=== PATIENT | female | born 1960 | race American Indian/Alaskan Native ===

== ENCOUNTER 2017-03-12 17:10 | Emergency (ER) | payer SELFPAY ==
[2017-03-12 19:25] VITALS: BP 118/79
[2017-03-12 20:29] LABS: Bacteria,Urine 1+ /HPF (Negative); Bilirubin,Urine NEG (Negative); Blood,Urine NEG (Negative); Ketones,Urine NEG (Negative); Leukocyte Esterase,Urine SM (Negative); Mucus,Urine FEW /HPF; Nitrite,Urine NEG (Negative); Protein,Urine <15 mg/dL mg/dL (Negative); RBC,Urine < 1.0 /HPF (0.0-6.0); Urobilinogen,Urine < 2.0 mg/dL (<2.0)
== END 2017-03-12 20:45 | disposition left against medical advice (07) ==
LOC: ED 17:10
DX: M54.89 Other dorsalgia (principal); R10.30 Lower abdominal pain, unspecified; R11.0 Nausea; Z53.21 Procedure and treatment not carried out due to patient leaving prior to being seen by health care provider
CPT/HCPCS: 81001; 81025

== ENCOUNTER 2017-11-19 07:44 | Emergency (ER) | payer OTHER ==
[2017-11-19] MEDS ORDERED: TORADOL IM ONE (09:22)
[2017-11-19] MEDS ORDERED: DELTASONE PO ONE (09:22)
--- NOTE | 2017-11-19 09:23 | Emergency Department Report ---
HPI - General Chief Complaint: Back Pain/Injury Time Seen by Provider: 11/19/17 09:10 - HPI HPI: This is a 57-year-old female who presents to ED complaining of left-sided back pain past 2 days. Patient states that several months ago she has had this pain before and was told it was a muscle spasm. Patient states pain is similar and localized to the lower left-sided of her back. Patient denies any fall, trauma or injuries to the back. Patient states she has been moving of bed against a wall and thinks is what aggravated the pain. She denies fever or sinus chills/ nausea vomiting/dysuria/urinary symptoms. ED Past Medical Hx - Past Medical History Hx Hypertension: Yes Hx Renal Disease: Yes (no dialysis) Hx Psychiatric Treatment: Yes (depression) - Surgical History Additional Surgical History: LAVG 1997 ( not being used anymore ) - Social History Smoking Status: Never Smoker Substance Use Type: None - Medications Home Medications: Home Medications Medication Instructions Recorded Confirmed Last Taken Type Ibuprofen [Motrin] 600 mg PO Q8H PRN #60 tablet 08/31/14 Unknown Rx Metaxalone [Skelaxin] 800 mg PO TID #30 tablet 02/19/15 Unknown Rx oxyCODONE /ACETAMINOPHEN [Percocet 1 tab PO Q6HR PRN #20 tablet 02/19/15 Unknown Rx 5/325 mg] traMADol [Ultram 50 MG tab] 50 mg PO Q6HR PRN #20 tablet 09/03/15 Unknown Rx Cyclobenzaprine [Flexeril] 10 mg PO QHS PRN #20 tablet 11/19/[address] [Voltaren Dr] 75 mg PO BID #30 tablet 11/19/17 Unknown Rx Fluconazole [Diflucan TAB] 150 mg PO ONCE #1 tablet 11/19/17 Unknown Rx Sulfamethoxazole/Trimethoprim 1 each PO BID #14 tablet 11/19/17 Unknown Rx [Bactrim DS TAB] ED Review of Systems ROS: Stated complaint: BACK SPASMS Other details as noted in HPI Constitutional: denies: chills, fever Eyes: denies: eye pain, eye discharge, vision change ENT: denies: ear pain, throat pain Respiratory: denies: cough, shortness of breath, wheezing Cardiovascular: denies: chest pain, palpitations Endocrine: no symptoms reported Gastrointestinal: denies: abdominal pain, nausea, diarrhea Genitourinary: denies: urgency, dysuria, discharge Musculoskeletal: myalgia. denies: back pain, joint swelling, arthralgia Skin: denies: rash, lesions Neurological: denies: headache, weakness, paresthesias Psychiatric: denies: anxiety, depression Hematological/Lymphatic: denies: easy bleeding, easy bruising Physical Exam - Physical Exam Vital Signs: Vital Signs 11/19/17 07:51 Temperature 98.3 F Pulse Rate 84 Respiratory 20 Rate Blood Pressure 123/84 O2 Sat by Pulse 100 Oximetry Physical Exam: GENERAL: Alert and oriented x3, no apparent distress, Normal Gait, atraumatic. HEAD: Head is normocephalic and a-traumatic. NECK: Supple. Non edematous, No lymphadenopathy or thyromegaly. No C-spine tenderness, full range of motion LUNGS: Symetrical with respiration, No wheezing, no rales or crackles, CTAB. HEART: S1, S2 present, regular rate and rhythm without murmur, no rubs, no gallops. Non tender to palpation BACK: Full range of motion, no spinal tenderness, Tenderness to palpation of the trapezius muscles and latissimus dorsi muscles of the left lower back EXTREMITIES/MUSCULOSKELETAL: No cyanosis, clubbing, rash, lesions or edema. Full ROM bilaterally. radial Pulses 2+ bilaterally. LE 5+ strength bilaterally , NEUROLOGIC: The patient is cooperative with no focal neurologic deficits. SKIN: Warm and dry, No lesions, No ulceration or induration present. ED Course Vital Signs 11/19/17 07:51 Temperature 98.3 F Pulse Rate 84 Respiratory 20 Rate Blood Pressure 123/84 O2 Sat by Pulse 100 Oximetry ED Medical Decision Making - Lab Data Laboratory Last Values Urine Color Yellow (Yellow) 11/19/17 09:23 Urine Turbidity Clear (Clear) 11/19/17 09:23 Urine pH 5.0 (5.0-7.0) 11/19/17 09:23 Ur Specific [place] 1.012 (1.003-1.030) 11/19/17 09:23 Urine Protein <15 mg/dl mg/dL (Negative) 11/19/17 09:23 Urine Glucose (UA) Neg mg/dL (Negative) 11/19/17 09:23 Urine Ketones Neg mg/dL (Negative) 11/19/17 09:23 Urine Blood Sm (Negative) 11/19/17 09:23 Urine Nitrite Neg (Negative) 11/19/17 09:23 Urine Bilirubin Neg (Negative) 11/19/17 09:23 Urine Urobilinogen < 2.0 mg/dL (<2.0) 11/19/17 09:23 Ur Leukocyte Esterase Lg (Negative) 11/19/17 09:23 Urine WBC (Auto) 12.0 /HPF (0.0-6.0) H 11/19/17 09:23 Urine RBC (Auto) 9.0 /HPF (0.0-6.0) 11/19/17 09:23 U Epithel Cells (Auto) 3.0 /HPF (0-13.0) 11/19/17 09:23 Urine Bacteria (Auto) 1+ /HPF (Negative) 11/19/17 09:23 Urine Yeast (Budding) 1+ /HPF 11/19/17 09:23 - Medical Decision Making 57-year-old female presents with muscle spasm/myalgia ED course: Urinalysis ordered to rule out urinary infection Patient received pain medication in ED or to discharge Urinalysis positive for urinary tract infection positive bacteria positive white count of positive yeast. Patient will be sent him on some antibiotics and Diflucan Patient also sent him on so pain medication for muscle spasms. I discussed the patient to follow up with the primary care physician. Vital signs are normal patient is in no acute or respiratory distress. - Differential Diagnosis 1. UTI 2. Myalgia 3. Muscle strain Critical care attestation.: If time is entered above; I have spent that time in minutes in the direct care of this critically ill patient, excluding procedure time. ED Disposition Clinical Impression: Myalgia, UTI (urinary tract infection), Muscle spasm of back Disposition: -01 TO HOME OR SELFCARE Is pt being admited?: No Does the pt Need Aspirin: No Condition: Stable Instructions: Urinary Tract Infection in Women (ED), Trigger Point Pain (ED), Musculoskeletal Pain (ED) Additional Instructions: Make sure to follow up with the primary care physician as discussed. Take all your medications as you've been prescribed. If you have any worsening symptoms or develop new symptoms please return to ED immediately. Prescriptions: Cyclobenzaprine [Flexeril] 10 mg PO QHS PRN #20 tablet PRN Reason: Muscle Spasm Diclofenac [Lyudmila Iniguez] 75 mg PO BID #30 tablet Fluconazole [Diflucan TAB] 150 mg PO ONCE #1 tablet Sulfamethoxazole/Trimethoprim [Bactrim DS TAB] 1 each PO BID #14 tablet Referrals: PRIMARY CARE, [Primary Care Provider] - 3-5 Days [facility] [Outside] - 3-5 Days [facility] [Outside] - 3-[address] [facility] [Outside] - 3-5 Days Forms: Work/School Release Form(ED), Work/School Release Form Time of Disposition: 11:50
[2017-11-19] MEDS ORDERED: TORADOL ONE (09:25)
[2017-11-19] MEDS ORDERED: DELTASONE ONE (09:25)
[2017-11-19 11:46] LABS: Bacteria,Urine 1+ /HPF (Negative); Bilirubin,Urine NEG (Negative); Blood,Urine SM (Negative); Color,Urine Yellow (Yellow); Protein,Urine <15 mg/dL mg/dL (Negative); Urobilinogen,Urine < 2.0 mg/dL (<2.0)
[2017-11-19 12:10] VITALS: BP 126/80
== END 2017-11-19 12:11 | disposition home or self-care (01) ==
LOC: ED 07:44
DX: M62.830 Muscle spasm of back (principal); N39.0 Urinary tract infection, site not specified; M79.1 Myalgia; I10 Essential (primary) hypertension; F32.9 Major depressive disorder, single episode, unspecified
CPT/HCPCS: 81001; 96372; 99283; J1885; J7512

== ENCOUNTER 2017-12-14 06:00 | Emergency (ER) | payer SELFPAY ==
[2017-12-14 06:12] VITALS: BP 116/81
[2017-12-14] MEDS ORDERED: MOTRIN ONE (06:12)
[2017-12-14] MEDS ORDERED: MOTRIN PO ONE (06:24)
--- NOTE | 2017-12-14 07:08 | XRay Report ---
FINAL REPORT EXAM: XR KNEE 3V LT HISTORY: left pain and swelling. TECHNIQUE: Three views of the left knee were obtained. FINDINGS: There is patellar spurring superiorly and inferiorly with narrowing of the patellofemoral compartment. There is a small to moderate sized joint effusion. The medial and lateral compartments appear intact. The soft tissues are well maintained. IMPRESSION: Patellofemoral osteoarthritic changes with joint effusion.
--- NOTE | 2017-12-14 08:47 | Emergency Department Report ---
ED Lower Extremity HPI - General Chief Complaint: Extremity Problem,Nontraumatic Stated Complaint: SWOLLEN KNEE Time Seen by Provider: 12/14/17 08:28 Source: patient Mode of arrival: Ambulatory Limitations: No Limitations - History of Present Illness Initial Comments: This is a 57-year-old -Turkmen female who presents with left knee pain and swelling for 3 days. Patient reports no injury or trauma. States she woke up on Tuesday with pain that was 10 out of 10 on pain scale, intermittent, and worse with movement. She was taking ibuprofen 200 mg at home with no relief of pain. Patient reported difficulty walking or bending knee due to swelling. She is able to ambulate. Denies erythema, fever, warmth, numbness or tingling, and pop sensation. MD Complaint: knee injury (left knee pain and swelling) -: days(s) (3 days) Injury: Knee: Left Type of Injury: unknown Place: home Severity: moderate Severity scale (0 -10): 7 Improves With: immobilization, rest Worsens With: weight bearing, movement Associated Symptoms: swelling, able to partially bear weight, ambulatory. denies: snap/pop sensation, numbness, tingling, unable to bear weight Treatments Prior to Arrival: NSAIDS - Related Data Previous Rx's Medication Instructions Recorded Last Taken Type Ibuprofen [Motrin] 600 mg PO Q8H PRN #60 tablet 08/31/14 Unknown Rx Metaxalone [Skelaxin] 800 mg PO TID #30 tablet 02/19/15 Unknown Rx oxyCODONE /ACETAMINOPHEN [Percocet 1 tab PO Q6HR PRN #20 tablet 02/19/15 Unknown Rx 5/325 mg] traMADol [Ultram 50 MG tab] 50 mg PO Q6HR PRN #20 tablet 09/03/15 Unknown Rx Cyclobenzaprine [Flexeril] 10 mg PO QHS PRN #20 tablet 11/19/[address] [Voltaren Dr] 75 mg PO BID #30 tablet 11/19/17 Unknown Rx Fluconazole [Diflucan TAB] 150 mg PO ONCE #1 tablet 11/19/17 Unknown Rx Sulfamethoxazole/Trimethoprim 1 each PO BID #14 tablet 11/19/17 Unknown Rx [Bactrim DS TAB] Diclofenac Sodium [Voltaren] 100 gm TP QID PRN #1 gel..gram. 12/14/17 Unknown Rx Ibuprofen [Motrin 800 MG tab] 800 mg PO Q8HR PRN #20 tablet 12/14/17 Unknown Rx Allergies Allergy/AdvReac Type Severity Reaction Status Date / Time benazepril HCl Allergy Angioedema Verified 11/19/17 09:35 [From Lotensin] ED Review of Systems ROS: Stated complaint: SWOLLEN KNEE Other details as noted in HPI Constitutional: denies: chills, fever Respiratory: denies: cough, shortness of breath, wheezing Cardiovascular: denies: chest pain, palpitations Gastrointestinal: denies: abdominal pain, nausea, diarrhea Musculoskeletal: joint swelling (left knee), arthralgia (left knee). denies: back pain Skin: denies: rash, lesions Neurological: denies: headache, weakness, numbness, paresthesias Psychiatric: denies: anxiety, depression ED Past Medical Hx - Past Medical History Hx Hypertension: Yes Hx Renal Disease: Yes (no dialysis) Hx Psychiatric Treatment: Yes (depression) - Surgical History Past Surgical History?: No Additional Surgical History: LAVBianca 1997 ( not being used anymore ) - Social History Smoking Status: Never Smoker Substance Use Type: None - Medications Home Medications: Home Medications Medication Instructions Recorded Confirmed Last Taken Type Ibuprofen [Motrin] 600 mg PO Q8H PRN #60 tablet 08/31/14 Unknown Rx Metaxalone [Skelaxin] 800 mg PO TID #30 tablet 02/19/15 Unknown Rx oxyCODONE /ACETAMINOPHEN [Percocet 1 tab PO Q6HR PRN #20 tablet 02/19/15 Unknown Rx 5/325 mg] traMADol [Ultram 50 MG tab] 50 mg PO Q6HR PRN #20 tablet 09/03/15 Unknown Rx Cyclobenzaprine [Flexeril] 10 mg PO QHS PRN #20 tablet 11/19/[address] [Voltaren Dr] 75 mg PO BID #30 tablet 11/19/17 Unknown Rx Fluconazole [Diflucan TAB] 150 mg PO ONCE #1 tablet 11/19/17 Unknown Rx Sulfamethoxazole/Trimethoprim 1 each PO BID #14 tablet 11/19/17 Unknown Rx [Bactrim DS TAB] Diclofenac Sodium [Voltaren] 100 gm TP QID PRN #1 gel..gram. 12/14/17 Unknown Rx Ibuprofen [Motrin 800 MG tab] 800 mg PO Q8HR PRN #20 tablet 12/14/17 Unknown Rx ED Physical Exam - General Limitations: No Limitations General appearance: alert, in no apparent distress - Respiratory Respiratory exam: Present: normal lung sounds bilaterally. Absent: respiratory distress - Cardiovascular Cardiovascular Exam: Present: regular rate, normal rhythm, normal heart sounds. Absent: systolic murmur, diastolic murmur, rubs, gallop - GI/Abdominal GI/Abdominal exam: Present: soft, normal bowel sounds. Absent: organomegaly, mass - Extremities Exam Extremities exam: Present: normal inspection, full ROM, normal capillary refill , joint swelling. Absent: pedal edema, calf tenderness - Expanded Lower Extremity Exam Left Hip exam: Present: normal inspection, full ROM Upper Leg exam: Present: normal inspection, full ROM Knee exam: Present: full ROM, tenderness (lateral patella), swelling, pain w/ pronation/supination, full knee extension. Absent: abrasion, laceration, ecchymosis, deformity, dislocation, erythema, effusion, posterior draw sign, pain/laxity with valgus, pain/laxity with varus Lower Leg exam: Present: normal inspection, full ROM Ankle exam: Present: normal inspection, full ROM Foot/Toe exam: Present: normal inspection, full ROM Neuro vascular tendon exam: Present: no vascular compromise Gait: Positive: observed and limited by pain - Neurological Exam Neurological exam: Present: alert, oriented X3 - Psychiatric Psychiatric exam: Present: normal affect, normal mood - Skin Skin exam: Present: warm, dry, intact, normal color. Absent: rash ED Course Vital Signs 12/14/17 06:08 Temperature 98.2 F Pulse Rate 89 Respiratory 18 Rate Blood Pressure 116/81 O2 Sat by Pulse 100 Oximetry ED Lower Extremity MDM - Radiology Data Radiology results: report reviewed EXAM: XR KNEE 3V LT HISTORY: left pain and swelling. TECHNIQUE: Three views of the left knee were obtained. FINDINGS: There is patellar spurring superiorly and inferiorly with narrowing of the patellofemoral compartment. There is a small to moderate sized joint effusion. The medial and lateral compartments appear intact. The soft tissues are well maintained. IMPRESSION: Patellofemoral osteoarthritic changes with joint effusion. - Medical Decision Making This is a 57y.o. female presents with left knee swelling and pain for 3 days. Patient was examined by me. Vitals are stable and in no acute distress. Obtained x-ray of left knee and read by radiologist. X-ray of left knee impression: Patellofemoral osteoarthritic changes with joint effusion. Patient given Motrin 800 mg by mouth once in triage. Patient informed of results. Patient reports feeling much better after treatment on physical assessment. Start ibuprofen for osteoarthritis. Plan discussed with patient to discharge home and treat outpatient. Patient discharged home in stable condition. Follow up with PCP in 2-3 days. Critical care attestation.: If time is entered above; I have spent that time in minutes in the direct care of this critically ill patient, excluding procedure time. ED Disposition Clinical Impression: Effusion, left knee Osteoarthritis of left knee Qualifiers: Osteoarthritis type: primary Qualified Code(s): M17.12 - Unilateral primary osteoarthritis, left knee Disposition: TO HOME OR SELFCARE Is pt being admited?: No Does the pt Need Aspirin: No Condition: Stable Instructions: Osteoarthritis (ED), Knee Effusion (ED) Additional Instructions: Rest Use ice or heat on affected area for 20 minutes and off for 2 hours. Take pain medication as needed for pain. Increase activity as tolerated. Follow up with Primary Care Provider in 2-3 days. Prescriptions: Diclofenac Sodium [Voltaren] 100 gm TP QID PRN #1 gel..gram. PRN Reason: Pain Ibuprofen [Motrin 800 MG tab] 800 mg PO Q8HR PRN #20 tablet PRN Reason: Pain Referrals: [facility] [Outside] - 3-5 Days [facility] [Outside] - 3-5 Days [facility] [Outside] - 3-5 Days Forms: Work/School Release Form(ED) Time of Disposition: 08:56 Print Language: MONGOLIAN
--- NOTE | 2017-12-14 09:01 | Emergency Department Report ---
ED Shortness of Breath HPI - General Chief Complaint: Extremity Problem,Nontraumatic Stated Complaint: SWOLLEN KNEE Time Seen by Provider: 12/14/17 08:28 Source: patient Mode of arrival: Ambulatory Limitations: No Limitations - History of Present Illness Severity: moderate - Related Data Previous Rx's Medication Instructions Recorded Last Taken Type Ibuprofen [Motrin] 600 mg PO Q8H PRN #60 tablet 08/31/14 Unknown Rx Metaxalone [Skelaxin] 800 mg PO TID #30 tablet 02/19/15 Unknown Rx oxyCODONE /ACETAMINOPHEN [Percocet 1 tab PO Q6HR PRN #20 tablet 02/19/15 Unknown Rx 5/325 mg] traMADol [Ultram 50 MG tab] 50 mg PO Q6HR PRN #20 tablet 09/03/15 Unknown Rx Cyclobenzaprine [Flexeril] 10 mg PO QHS PRN #20 tablet 11/19/[address] [Voltaren Dr] 75 mg PO BID #30 tablet 11/19/17 Unknown Rx Fluconazole [Diflucan TAB] 150 mg PO ONCE #1 tablet 11/19/17 Unknown Rx Sulfamethoxazole/Trimethoprim 1 each PO BID #14 tablet 11/19/17 Unknown Rx [Bactrim DS TAB] Allergies Allergy/AdvReac Type Severity Reaction Status Date / Time benazepril HCl Allergy Angioedema Verified 11/19/17 09:35 [From Lotensin] ED Review of Systems ROS: Stated complaint: SWOLLEN KNEE Other details as noted in HPI Constitutional: denies: chills, fever Respiratory: denies: cough, shortness of breath, wheezing Cardiovascular: denies: chest pain, palpitations Gastrointestinal: denies: abdominal pain, nausea, diarrhea Musculoskeletal: joint swelling (left knee), arthralgia (left knee). denies: back pain Skin: denies: rash, lesions Neurological: denies: headache, weakness, numbness, paresthesias Psychiatric: denies: anxiety, depression ED Past Medical Hx - Past Medical History Hx Hypertension: Yes Hx Renal Disease: Yes (no dialysis) Hx Psychiatric Treatment: Yes (depression) - Surgical History Past Surgical History?: No Additional Surgical History: LAV1997 ( not being used anymore ) - Social History Smoking Status: Never Smoker Substance Use Type: None - Medications Home Medications: Home Medications Medication Instructions Recorded Confirmed Last Taken Type Ibuprofen [Motrin] 600 mg PO Q8H PRN #60 tablet 08/31/14 Unknown Rx Metaxalone [Skelaxin] 800 mg PO TID #30 tablet 02/19/15 Unknown Rx oxyCODONE /ACETAMINOPHEN [Percocet 1 tab PO Q6HR PRN #20 tablet 02/19/15 Unknown Rx 5/325 mg] traMADol [Ultram 50 MG tab] 50 mg PO Q6HR PRN #20 tablet 09/03/15 Unknown Rx Cyclobenzaprine [Flexeril] 10 mg PO QHS PRN #20 tablet 11/19/[address] [Voltaren Dr] 75 mg PO BID #30 tablet 11/19/17 Unknown Rx Fluconazole [Diflucan TAB] 150 mg PO ONCE #1 tablet 11/19/17 Unknown Rx Sulfamethoxazole/Trimethoprim 1 each PO BID #14 tablet 11/19/17 Unknown Rx [Bactrim DS TAB] ED Physical Exam - General Limitations: No Limitations General appearance: alert, in no apparent distress ED Course Vital Signs 12/14/17 06:08 Temperature 98.2 F Pulse Rate 89 Respiratory 18 Rate Blood Pressure 116/81 O2 Sat by Pulse 100 Oximetry Critical care attestation.: If time is entered above; I have spent that time in minutes in the direct care of this critically ill patient, excluding procedure time. ED Disposition Condition: Stable Referrals: PRIMARY CARE, [Primary Care Provider] - 3-5 Days
== END 2017-12-14 09:05 | disposition home or self-care (01) ==
LOC: ED 06:00
DX: M17.12 Unilateral primary osteoarthritis, left knee (principal); M25.462 Effusion, left knee; I10 Essential (primary) hypertension; F32.9 Major depressive disorder, single episode, unspecified; Z79.899 Other long term (current) drug therapy; Z88.8 Allergy status to other drugs, medicaments and biological substances
CPT/HCPCS: 99283

== ENCOUNTER 2018-02-02 08:16 | Emergency (ER) | payer SELFPAY ==
[2018-02-02 08:26] VITALS: BP 132/89
--- NOTE | 2018-02-02 08:33 | Emergency Department Report ---
Upper Extremity - HPI Chief Complaint: Extremity Injury, Upper Stated Complaint: RT ARM NUMB/PAIN Time Seen by Provider: 02/02/18 08:32 Upper Extremity: Right Elbow (pain and decreased range of motion) Occurred When: >5 Days (greater than 1 month from sprain which she says she had an x-ray done at [facility] and they found that she had a sprain.) Mechanism: Twist Severity: severe (04/12) Symptoms: Yes Pain with Movement (left elbow), Yes Limited Range of Movement ( left elbow), No Deformity, No Numbness, No Weakness, No Swelling, No Bruising/ Ecchymosis, No Laceration or Abrasion Other History: This is a 58-year-old female here report that she has left elbow pain for over a month which she went to [facility] and had x-ray done 1 month ago and this that she has a sprain but reported that she had flareup 2 days ago. She reports pain is aching and throbbing in her left elbow 04/12. She says she took [id number] ibuprofen but it did not help her pain. Pain is worse with movement and no alleviating factors. She says she had injured her elbow one month ago. He denies any chest pain or shortness of breath. Denies any radiation of pain proximally or distally. ED Review of Systems ROS: Stated complaint: RT ARM NUMB/PAIN Other details as noted in HPI Constitutional: denies: chills, fever Eyes: denies: eye pain, vision change ENT: denies: throat pain Respiratory: denies: cough, shortness of breath, SOB with exertion, SOB at rest , stridor, wheezing Cardiovascular: denies: chest pain, palpitations, dyspnea on exertion, edema, syncope, paroxysmal nocturnal dyspnea Gastrointestinal: denies: abdominal pain, nausea, vomiting, diarrhea Genitourinary: denies: urgency, dysuria, discharge Musculoskeletal: arthralgia. denies: back pain, joint swelling, myalgia Skin: denies: rash, lesions Neurological: denies: headache, weakness, numbness, paresthesias, abnormal gait , vertigo ED Past Medical Hx - Past Medical History Previous Medical History?: Yes Hx Hypertension: Yes Hx Renal Disease: Yes (no dialysis) Hx Psychiatric Treatment: Yes (depression) - Surgical History Past Surgical History?: Yes Additional Surgical History: LAVG 1997 ( not being used anymore ) - Family History Family history: hypertension - Social History Smoking Status: Never Smoker Substance Use Type: None - Medications Home Medications: Home Medications Medication Instructions Recorded Confirmed Last Taken Type Ibuprofen [Motrin] 600 mg PO Q8H PRN #60 tablet 08/31/14 Unknown Rx Metaxalone [Skelaxin] 800 mg PO TID #30 tablet 02/19/15 Unknown Rx oxyCODONE /ACETAMINOPHEN [Percocet 1 tab PO Q6HR PRN #20 tablet 02/19/15 Unknown Rx 5/325 mg] Cyclobenzaprine [Flexeril] 10 mg PO QHS PRN #20 tablet 11/19/[address] [Voltaren Dr] 75 mg PO BID #30 tablet 11/19/17 Unknown Rx Fluconazole [Diflucan TAB] 150 mg PO ONCE #1 tablet 11/19/17 Unknown Rx Sulfamethoxazole/Trimethoprim 1 each PO BID #14 tablet 11/19/17 Unknown Rx [Bactrim DS TAB] Diclofenac Sodium [Voltaren] 100 gm TP QID PRN #1 gel..gram. 12/14/17 Unknown Rx Ibuprofen [Motrin 800 MG tab] 800 mg PO Q8HR PRN #20 tablet 12/14/17 Unknown Rx traMADol [Ultram 50 MG tab] 50 mg PO Q6HR PRN #20 tablet 02/02/18 Unknown Rx Upper Extremity Exam - Exam General: Vital signs noted. No distress. Alert and acting appropriately. Head and Torso: No HEENT Abnormality, No Neck Tenderness, No Chest/Lungs Abnormality, No Abdominal Tenderness, No Back Tenderness Shoulder Exam: Yes Normal Range of Motion in Shoulder, No Shoulder Tenderness, No Clavicle Tenderness, No Shoulder Deformity, No AC Joint Tenderness Arm Exam: No Arm/Humerus Tenderness, No Arm Deformity Elbow: No Elbow Tenderness, No Normal Range of Motion in Elbow (full range of motion but she reports pain to left elbow with flexion and extension), No Elbow Deformity Forearm: Yes Pain with Pronation, Yes Pain with Supination, No Forearm Tenderness, No Forearm Deformity Wrist: Yes Normal ROM in Wrist (full range of motion), No Wrist Tenderness, No Wrist Deformity, No Snuffbox Tenderness, No Pain with Axial Thumb Compression Hand: Yes Normal ROM in Digit(s), No Hand Tenderness, No Hand Deformity, No Digit Tenderness, No Digit(s) Deformity, No Tendon Dysfunction CMS Exam: Yes Normal Distal Pulses, Yes Normal Capillary Refill, Yes Normal Distal Sensation, No Broken Skin ED Course Vital Signs 02/02/18 08:22 Temperature 98.8 F Pulse Rate 76 Respiratory 16 Rate Blood Pressure 132/89 O2 Sat by Pulse 98 Oximetry - Reevaluation(s) Reevaluation #1: 02/02/18 09:44 Patient given Percocet 5/325 2 tablets by mouth and Decadron 10 mg IM in emergency room for left elbow pain. - Orthopedic Splinting/Casting Injury #1 Side: right Upper Extremity Injury Location: elbow Upper Extremity Immobilizer: sling/shoulder immobilize ED Medical Decision Making - Medical Decision Making This is a 58-year-old female here report that she is then pain tonight at [facility] from previous elbow sprain one month ago where she went to [facility] and had an x-ray and she was told that he was the sprain. She was referred to orthopedic doctor which she did not go. Patient has a history of chronic kidney disease and she is not on dialysis. I saw and examined patient and she has tenderness to her RT elbow without any tenderness to forearm or shoulder. She is able to move all her extremities except she says she has pain with movement of her RT elbow. Denies any numbness or tingling or restriction of movement. She was given pain medication in the emergency room. Patient also given right upper extremity sling. Arthralgia right elbow-given [place] 5/325 mg 2 tablets by mouth and Decadron 10 mg IM and emergency room. The. 4 patient that she needs to follow up with orthopedic doctor at previously instructed one month ago. She voiced understanding. Patient discharged home in stable condition with prescription for Ultram and to follow-up with orthopedic doctor in 4 days. She voiced understanding. Vital signs are stable and she is afebrile and nontoxic in appearance. Pain controlled. Critical care attestation.: If time is entered above; I have spent that time in minutes in the direct care of this critically ill patient, excluding procedure time. ED Disposition Clinical Impression: Elbow pain, right Disposition: [id number] TO HOME OR SELFCARE Is pt being admited?: No Does the pt Need Aspirin: No Condition: Stable Instructions: Arthralgia (ED) Additional Instructions: Follow up with orthopedic Doctor in 4 days for elbow pain that is not getting better. Take Ultram for pain but these did not drive or operate heavy machinery as this medication causes drowsiness Prescriptions: traMADol [Ultram 50 MG tab] 50 mg PO Q6HR PRN #20 tablet PRN Reason: Pain Referrals: PRIMARY CARE, [Primary Care Provider] - 3-5 Days GOKUL LEVI MD [Staff Physician] - 3-5 Days Forms: Work/School Release Form(ED)
[2018-02-02] MEDS ORDERED: DECADRON IM STA (08:46)
[2018-02-02] MEDS ORDERED: PERCOCET 5/325 PO ONE (08:46)
== END 2018-02-02 09:59 | disposition home or self-care (01) ==
LOC: ED 08:16
DX: M25.522 Pain in left elbow (principal); I10 Essential (primary) hypertension; F32.9 Major depressive disorder, single episode, unspecified
CPT/HCPCS: 96372; 99283; J1100

== ENCOUNTER 2018-02-24 12:41 | Emergency (ER) | payer OTHER ==
[2018-02-24 13:26] LABS: Basophils % (Auto) 0.7 % (0.0-1.8); Eosinophils # (Auto) 0.2 K/mm3 (0.0-0.4); Eosinophils % (Auto) 2.6 % (0.0-4.3); Hematocrit 38.2 % (30.3-42.9); Lymphocytes # (Auto) 1.4 K/mm3 (1.2-5.4); Lymphocytes % (Auto) 22.6 % (13.4-35.0); Mean Corpuscular HGB Conc 34 % (30-34); Mean Corpuscular Hemoglobin 29 pg (28-32); Mean Corpuscular Volume 86 fl (79-97); Monocytes # (Auto) 0.6 K/mm3 (0.0-0.8); Monocytes % (Auto) 10.6 % (0.0-7.3); Platelet Count 330 K/mm3 (140-440); Red Blood Count 4.46 M/mm3 (3.65-5.03); Red Cell Distribution Width 16.6 % (13.2-15.2)
[2018-02-24 13:33] LABS: Bilirubin,Urine NEG (Negative); Blood,Urine NEG (Negative); Color,Urine Yellow (Yellow); Mucus,Urine FEW /HPF; Urobilinogen,Urine < 2.0 mg/dL (<2.0)
[2018-02-24 13:34] LABS: Protein,Urine >500 mg/dL (Negative)
[2018-02-24 13:42] LABS: Albumin 3.7 g/dL (3.9-5)
[2018-02-24] MEDS ORDERED: DILAUDID IV ONE (13:43)
[2018-02-24] MEDS ORDERED: TORADOL IV ONE (13:44)
--- NOTE | 2018-02-24 13:46 | Emergency Department Report ---
ED Abdominal Pain HPI - General Chief Complaint: Abdominal Pain Stated Complaint: BACK PAIN/STOMACH Time Seen by Provider: 02/24/18 13:41 Source: patient Mode of arrival: Ambulatory Limitations: No Limitations - History of Present Illness Initial Comments: He is a 58-year-old female presents to emergency room with right lower back pain radiating to the right lower abdomen 3 days. Patient states that he is worsening. Patient also complains of nausea without vomiting. Patient denies dysuria vaginal bleeding and vaginal discharge. Patient denies fever and chills. Patient denies chest pain shortness of breath. Patient states the pain is a 10 out of 10. Patient states the pain is worsening. Patient states she has been taking ibuprofen for her back pain with minimal relief. Patient states she injured her back lifting a bag of trash. Patient denies saddle numbness or loss of control of bowel or urine. Patient denies fever or chills MD Complaint: abdominal pain, flank pain -: Sudden Location: R flank Radiation: RLQ Migration to: no migration Severity: severe Severity scale (0 -10): 10 Quality: stabbing Consistency: constant Improves With: rest Worsens With: movement Associated Symptoms: nausea. denies: vomiting, diarrhea, fever, chills, constipation, dysuria, hematemesis, hematochezia, melena, hematuria, anorexia, syncope - Related Data Previous Rx's Medication Instructions Recorded Last Taken Type Ibuprofen [Motrin] 600 mg PO Q8H PRN #60 tablet 08/31/14 Unknown Rx Metaxalone [Skelaxin] 800 mg PO TID #30 tablet 02/19/15 Unknown Rx oxyCODONE /ACETAMINOPHEN [Percocet 1 tab PO Q6HR PRN #20 tablet 02/19/15 Unknown Rx 5/325 mg] Diclofenac Dr [Voltaren Dr] 75 mg PO BID #30 tablet 11/19/17 Unknown Rx Fluconazole [Diflucan TAB] 150 mg PO ONCE #1 tablet 11/19/17 Unknown Rx Sulfamethoxazole/Trimethoprim 1 each PO BID #14 tablet 11/19/17 Unknown Rx [Bactrim DS TAB] Diclofenac Sodium [Voltaren] 100 gm TP QID PRN #1 gel..gram. 12/14/17 Unknown Rx Ibuprofen [Motrin 800 MG tab] 800 mg PO Q8HR PRN #20 tablet 12/14/17 Unknown Rx traMADol [Ultram 50 MG tab] 50 mg PO Q6HR PRN #20 tablet 02/02/18 Unknown Rx Cyclobenzaprine [Flexeril 10 MG 10 mg PO QHS PRN #20 tablet 02/24/18 Unknown Rx TAB] HYDROcodone/APAP 7.5-325 [[place] 1 each PO Q6HR PRN #12 tablet 02/24/18 Unknown Rx 7.5/325] Allergies Allergy/AdvReac Type Severity Reaction Status Date / Time benazepril HCl Allergy Angioedema Verified 11/19/17 09:35 [From Lotensin] ED Review of Systems ROS: Stated complaint: BACK PAIN/STOMACH Other details as noted in HPI Constitutional: denies: chills, fever Eyes: denies: eye pain, eye discharge, vision change ENT: denies: ear pain, throat pain Respiratory: denies: cough, shortness of breath, wheezing Cardiovascular: denies: chest pain, palpitations Endocrine: no symptoms reported Gastrointestinal: abdominal pain, nausea. denies: diarrhea Genitourinary: denies: urgency, dysuria, discharge Musculoskeletal: denies: back pain, joint swelling, arthralgia Skin: denies: rash, lesions Neurological: denies: headache, weakness, paresthesias Psychiatric: denies: anxiety, depression Hematological/Lymphatic: denies: easy bleeding, easy bruising ED Past Medical Hx - Past Medical History Previous Medical History?: Yes Hx Hypertension: Yes Hx Renal Disease: Yes (no dialysis) Hx Psychiatric Treatment: Yes (depression) - Surgical History Past Surgical History?: Yes Additional Surgical History: LAVG 1997 ( not being used anymore ) - Family History Family history: no significant - Social History Smoking Status: Never Smoker Substance Use Type: None - Medications Home Medications: Home Medications Medication Instructions Recorded Confirmed Last Taken Type Ibuprofen [Motrin] 600 mg PO Q8H PRN #60 tablet 08/31/14 Unknown Rx Metaxalone [Skelaxin] 800 mg PO TID #30 tablet 02/19/15 Unknown Rx oxyCODONE /ACETAMINOPHEN [Percocet 1 tab PO Q6HR PRN #20 tablet 02/19/15 Unknown Rx 5/325 mg] Diclofenac Dr [Voltaren Dr] 75 mg PO BID #30 tablet 11/19/17 Unknown Rx Fluconazole [Diflucan TAB] 150 mg PO ONCE #1 tablet 11/19/17 Unknown Rx Sulfamethoxazole/Trimethoprim 1 each PO BID #14 tablet 11/19/17 Unknown Rx [Bactrim DS TAB] Diclofenac Sodium [Voltaren] 100 gm TP QID PRN #1 gel..gram. 12/14/17 Unknown Rx Ibuprofen [Motrin 800 MG tab] 800 mg PO Q8HR PRN #20 tablet 12/14/17 Unknown Rx traMADol [Ultram 50 MG tab] 50 mg PO Q6HR PRN #20 tablet 02/02/18 Unknown Rx Cyclobenzaprine [Flexeril 10 MG 10 mg PO QHS PRN #20 tablet 02/24/18 Unknown Rx TAB] HYDROcodone/APAP 7.5-325 [[place] 1 each PO Q6HR PRN #12 tablet 02/24/18 Unknown Rx 7.5/325] ED Physical Exam - General Limitations: No Limitations General appearance: alert, in no apparent distress - Head Head exam: Present: atraumatic, normocephalic - Eye Eye exam: Present: normal appearance - ENT ENT exam: Present: mucous membranes moist - Neck Neck exam: Present: normal inspection - Respiratory Respiratory exam: Present: normal lung sounds bilaterally. Absent: respiratory distress - Cardiovascular Cardiovascular Exam: Present: regular rate, normal rhythm. Absent: systolic murmur, diastolic murmur, rubs, gallop - GI/Abdominal GI/Abdominal exam: Present: soft, normal bowel sounds - Extremities Exam Extremities exam: Present: normal inspection - Back Exam Back exam: Present: normal inspection, tenderness, CVA tenderness (R), muscle spasm, paraspinal tenderness - Neurological Exam Neurological exam: Present: alert, oriented X3 - Psychiatric Psychiatric exam: Present: normal affect, normal mood - Skin Skin exam: Present: warm, dry, intact, normal color. Absent: rash ED Course Vital Signs 02/24/18 12:56 Temperature 99.6 F Pulse Rate 77 Respiratory 18 Rate Blood Pressure 188/98 O2 Sat by Pulse 98 Oximetry - Reevaluation(s) Reevaluation #1: Exam appears patient has a renal stone. We'll do CT scan and give patient IV fluids and IV pain medications 02/24/18 13:45 Reevaluation #2: Patient is pain-free at this time. Patient will be discharged home. We'll give patient follow-up instructions to see her primary care and vertical contour band saw operator in 3-5 days. Patient is aren't aware of right kidney mass in his artery had a biopsy done and negative for cancer. Discussed all results with patient. Patient pain consistent with a lumbar strain. Patient states she feels better. 02/24/18 15:53 ED Medical Decision Making - Lab Data Result diagrams: 02/24/18 13:02 02/24/18 13:02 - Radiology Data Radiology results: report reviewed CT abdomen and pelvis without contrast: Flank pain. Transverse images are obtained from the lower chest to the ischium with coronal and sagittal 2-D reformatted images. No comparison available. The visualized lung bases are clear. There is a hiatus hernia. The abdominal organs are unremarkable otherwise. There is a circumscribed partially exophytic round mass in the upper pole of the left kidney measuring 4.6 cm and having a low attenuation consistent with cyst. There is a tiny calculus at the periphery of the inferior small calcification is noted in the parenchyma of the inferior right kidney just above a relatively homogeneous and circumscribed mass measuring 3.9 cm. Urinary bladder appears normal. The unopacified bowel appears generally unremarkable for any inflammatory or neoplastic changes. The appendix is questionably visualized. There is eventration of the bowel anterior to the liver. Normal appearing reproductive organs. There is no obvious adenopathy appreciated. No focal or generalized bone lesions. Impressions: 1. Indeterminate right renal mass. Additional evaluation recommended which may include contrast a CT scan/ultrasound/MRI. 2. Large simple left renal cyst. 3. Nonobstructing bilateral renal parenchymal calcification. Transcribed By: Dari Dictated By: GOKUL HANCOCK MD Electronically Authenticated By: GOKUL HANCOCK MD Signed Date/Time: 02/24/18 1431 - Medical Decision Making Patient is a 58-year-old female presents to emergency room with back pain and flank pain. CT scan was normal for acute findings. Patient found to have a right renal mass and a left renal cyst. Per patient patient is aware of these findings and artery has a vertical contour band saw operator following these findings. Patient will be given pain medications to treat her back pain and instructed to follow up with primary care and vertical contour band saw operator. Patient is stable for discharge - Differential Diagnosis lumbar back pain. uti. renal stone. lumbar strain Critical care attestation.: If time is entered above; I have spent that time in minutes in the direct care of this critically ill patient, excluding procedure time. ED Disposition Clinical Impression: Flank pain, Renal mass, Lumbar back pain, Renal insufficiency, mild Back pain Qualifiers: Back pain location: low back pain Chronicity: acute Back pain laterality: right Sciatica presence: without sciatica Qualified Code(s): M54.5 - Low back pain Lumbar strain Qualifiers: Encounter type: initial encounter Qualified Code(s): S39.012A - Strain of muscle, fascia and tendon of lower back, initial encounter Disposition: TO HOME OR SELFCARE Is pt being admited?: No Does the pt Need Aspirin: No Condition: Stable Instructions: Acute Low Back Pain (ED), Abdominal Pain (ED), Muscle Strain (ED) Additional Instructions: Patient to follow up with primary care in 3-5 days. Patient to follow-up with vertical contour band saw operator in 3-5 days. Patient to return to the ER if condition worsens. Patient did take meds as directed. Patient take Tylenol when necessary for pain. Patient increase water. Patient to rest. Prescriptions: Cyclobenzaprine [Flexeril 10 MG TAB] 10 mg PO QHS PRN #20 tablet PRN Reason: Muscle Spasm HYDROcodone/APAP 7.5-325 [[place] 7.5/325] 1 each PO Q6HR PRN #12 tablet PRN Reason: Pain Referrals: PRIMARY CARE, [Primary Care Provider] - 3-5 Days Time of Disposition: 15:59
--- NOTE | 2018-02-24 14:49 | Cat Scan Report ---
CT abdomen and pelvis without contrast: Flank pain. Transverse images are obtained from the lower chest to the ischium with coronal and sagittal 2-D reformatted images. No comparison available. The visualized lung bases are clear. There is a hiatus hernia. The abdominal organs are unremarkable otherwise. There is a circumscribed partially exophytic round mass in the upper pole of the left kidney measuring 4.6 cm and having a low attenuation consistent with cyst. There is a tiny calculus at the periphery of the inferior small calcification is noted in the parenchyma of the inferior right kidney just above a relatively homogeneous and circumscribed mass measuring 3.9 cm. Urinary bladder appears normal. The unopacified bowel appears generally unremarkable for any inflammatory or neoplastic changes. The appendix is questionably visualized. There is eventration of the bowel anterior to the liver. Normal appearing reproductive organs. There is no obvious adenopathy appreciated. No focal or generalized bone lesions. Impressions: 1. Indeterminate right renal mass. Additional evaluation recommended which may include contrast a CT scan/ultrasound/MRI. 2. Large simple left renal cyst. 3. Nonobstructing bilateral renal parenchymal calcification.
[2018-02-24] MEDS ORDERED: NACL 0.9% 1000 ML 1,000 ML IV ONE (15:53)
[2018-02-24 17:37] VITALS: BP 161/87
== END 2018-02-24 16:20 | disposition home or self-care (01) ==
LOC: ED 12:41
DX: S39.012A Strain of muscle, fascia and tendon of lower back, initial encounter (principal); N28.89 Other specified disorders of kidney and ureter; N28.9 Disorder of kidney and ureter, unspecified; F32.9 Major depressive disorder, single episode, unspecified; X58.XXXA Exposure to other specified factors, initial encounter; Y93.89 Activity, other specified; Y92.89 Other specified places as the place of occurrence of the external cause; Y99.8 Other external cause status
CPT/HCPCS: 36415; 74176; 80053; 81001; 83690; 85025; 96361; 96374; 96375; 99284; J1170; J1885; J7030

== ENCOUNTER 2018-09-02 13:37 | Emergency (ER) | payer OTHER ==
[2018-09-02 13:52] VITALS: BP 181/105
--- NOTE | 2018-09-02 13:58 | Emergency Department Report ---
Blank Doc - Documentation Documentation: This a 58 yo female here reports left foot swelling and painx 3 days. She repo rts arthritis. Pain 8/10 abd aching PE: Left foot TTP, Pedal pulses 2+ his initial assessment diagnostic orders/clinical plan/treatment (s) is/Are subject change based on patient's health status, clinical progression and re- assessment by fellow clinical providers in the ED. Further treatment and work-up at subsequent clinical providers discetion. Patient/guardians urged not to elope from s their condition may be serious if not clinically assessed and managed. Inital order include:XR, repeat vs
[2018-09-02] MEDS ORDERED: ULTRAM PO ONE (16:29)
--- NOTE | 2018-09-02 16:51 | Emergency Department Report ---
HPI - General Chief Complaint: Extremity Injury, Lower Time Seen by Provider: 09/02/18 13:53 - HPI HPI: 58-year-old -Indian female presents to the emergency department with a complaint of right foot pain and swelling. She says that she has a history of both her feet swelling intermittently but currently she is just concerned about the right foot. She denies any trauma to the area. She denies any skin color change, rash or lesions. She has not taken anything for her symptoms prior to presentation. She denies any past medical history. Her primary care physician is Dr. Sarthak Perez. ED Past Medical Hx - Past Medical History Hx Hypertension: Yes Hx Renal Disease: Yes Hx Psychiatric Treatment: Yes (depression) - Surgical History Additional Surgical History: LAVG 1997 ( not being used anymore ) - Social History Smoking Status: Never Smoker Substance Use Type: None - Medications Home Medications: Home Medications Medication Instructions Recorded Confirmed Last Taken Type Ibuprofen [Motrin] 600 mg PO Q8H PRN #60 tablet 08/31/14 Unknown Rx RX: Metaxalone [Skelaxin] 800 mg PO TID #30 tablet 02/19/15 Unknown Rx oxyCODONE /ACETAMINOPHEN [Percocet 1 tab PO Q6HR PRN #20 tablet 02/19/15 Unknown Rx 5/325 mg] Fluconazole [Diflucan TAB] 150 mg PO ONCE #1 tablet 11/19/17 Unknown Rx RX: Diclofenac Dr [Voltaren Dr] 75 mg PO BID #30 tablet 11/19/17 Unknown Rx RX: Sulfamethoxazole/Trimethoprim 1 each PO BID #14 tablet 11/19/17 Unknown Rx [Bactrim DS TAB] RX: Diclofenac Sodium [Voltaren] 100 gm TP QID PRN #1 gel..gram. 12/14/17 Unkno wn Rx RX: Ibuprofen [Motrin 800 MG tab] 800 mg PO Q8HR PRN #20 tablet 12/14/17 Unknown Rx HYDROcodone/APAP 7.5-325 [[place] 1 each PO Q6HR PRN #12 tablet 02/24/18 Unknown Rx 7.5/325] RX: Cyclobenzaprine [Flexeril 10 10 mg PO QHS PRN #20 tablet 02/24/18 Unknown Rx MG TAB] RX: Gentamicin 0.3% Ophth Oint 1 applicatio OP Q8H 7 Days #1 tube 05/23/18 Unknown Rx RX: traMADol [Ultram 50 MG tab] 50 mg PO Q6HR PRN #12 tablet 05/23/18 Unknown Rx cephALEXin [Keflex] 500 mg PO Q8HR 10 Days #30 cap 05/23/18 Unknown Rx RX: traMADol [Ultram 50 MG tab] 50 mg PO Q6HR PRN #10 tablet 09/02/18 Unknown Rx ED Review of Systems ROS: Stated complaint: FOOT SWOLLEN Other details as noted in HPI Comment: All other systems reviewed and negative Constitutional: denies: chills, fever Eyes: denies: eye pain, vision change Respiratory: denies: cough, shortness of breath Cardiovascular: denies: chest pain, palpitations Gastrointestinal: denies: abdominal pain, vomiting Genitourinary: denies: dysuria, discharge Musculoskeletal: joint swelling, arthralgia Skin: denies: rash, lesions Neurological: denies: headache, numbness Physical Exam - Physical Exam Vital Signs: Vital Signs 09/02/18 13:51 Temperature 97.9 F Pulse Rate 90 Respiratory 20 Rate Blood Pressure 181/105 O2 Sat by Pulse 98 Oximetry Physical Exam: GENERAL: The patient is well-developed well-nourished. HEENT: Normocephalic. Atraumatic. Patient has moist mucous membranes. EYES: Extraocular motions are intact. NECK: Supple. Trachea is midline. CHEST/LUNGS: Clear to auscultation. There is no respiratory distress noted. HEART/CARDIOVASCULAR: Regular. There is no tachycardia. There is no obvious murmur. ABDOMEN: There is no abdominal distention. SKIN: Skin is warm and dry. NEURO: The patient is awake, alert, and oriented. The patient is cooperative. The patient has no focal neurologic deficits. The patient has normal speech. MUSCULOSKELETAL: There is some reproducible tenderness to palpation to the dorsum of the right foot. No obvious deformity.. There is no limitation range of motion. There is no evidence of acute injury. ED Course Vital Signs 09/02/18 13:51 Temperature 97.9 F Pulse Rate 90 Respiratory 20 Rate Blood Pressure 181/105 O2 Sat by Pulse 98 Oximetry ED Medical Decision Making - Radiology Data Radiology results: image reviewed interpreted by me: X-ray of the right foot does not show any fracture, dislocation or any acute process. - Medical Decision Making Patient presents with a few days of right foot pain and she says that it is also swollen. I cannot appreciate any swelling at this time. She says that she has had intermittent episodes where both of her feet will swell and become painful but the last few days it is just the right foot. She denies any trauma. An x- ray does not show any fracture, dislocation or any other acute process. She was given a dose of tramadol for her discomfort. She was seen ambulatory in the emergency department and appears stable. She has some hypertension but otherwise her vital signs are stable throughout her ED course. She admits to not taking her blood pressure medication today. She will be discharged home with a small prescription of pain medication, referral for podiatry and encouragement to see her primary care physician. She will return to the ER with any worsening of her symptoms or any acute distress. - Differential Diagnosis arthritis, gout, cellulitis Critical Care Time: No Critical care attestation.: If time is entered above; I have spent that time in minutes in the direct care of this critically ill patient, excluding procedure time. ED Disposition Clinical Impression: Right foot pain Hypertension Qualifiers: Hypertension type: essential hypertension Qualified Code(s): I10 - Essential (p rimary) hypertension Disposition: DC-01 TO HOME OR SELFCARE Is pt being admited?: No Condition: Stable Instructions: Hypertension (ED), Arthralgia (ED) Additional Instructions: Please follow-up with your primary care physician in the next few days. I have given a referral for 2 different podiatrists so that you can follow-up regarding your right foot pain. Return to the emergency Department with any worsening of your symptoms or any acute distress. You have been prescribed a medication that can be sedating. Therefore, this medication cannot be taken prior to driving, working, being responsible for children, and cannot be mixed with alcohol of any quantity. Prescriptions: RX: traMADol [Ultram 50 MG tab] 50 mg PO Q6HR PRN #10 tablet PRN Reason: Pain Referrals: CLEMENTINA BRANCH MD [Staff Physician] - 2-3 Days SHELLY PECK DPM [Staff Physician] - 2-3 Days Forms: Accompanied Note, Work/School Release Form(ED) Time of Disposition: 17:35
--- NOTE | 2018-09-02 19:11 | XRay Report ---
PROCEDURE: XR FOOT 3+V LT TECHNIQUE: foot radiographs, AP, lateral, and oblique views. HISTORY: Left foot pain ans swelling COMPARISONS: None . FINDINGS: AP, lateral and oblique views of the left foot were acquired. The site of pain is not indic ated. On the oblique view there is a suspected nondisplaced fracture proximal, medial corner of the t hird distal phalanx and correlation with site of patient is advised. There is a plantar calcaneal spur, 0.5 cm. IMPRESSION: Suspected nondisplaced fracture of proximal, medial corner of the third distal phalanx This document is electronically signed by Dany Cazares MD., September 02 2018 02:54:42 PM ET
== END 2018-09-02 17:50 | disposition home or self-care (01) ==
LOC: ED 13:37
DX: M79.671 Pain in right foot (principal); I10 Essential (primary) hypertension; F32.9 Major depressive disorder, single episode, unspecified; Z79.899 Other long term (current) drug therapy; Z88.1 Allergy status to other antibiotic agents
CPT/HCPCS: 99283

== ENCOUNTER 2018-12-25 08:19 | Emergency (ER) | payer OTHER ==
--- NOTE | 2018-12-25 08:51 | Emergency Department Report ---
HPI - General Time Seen by Provider: 12/25/18 08:29 - HPI HPI: Room 19 The patient is a 58-year-old female presenting with a chief complaint of unresponsiveness. The patient reportedly had gotten off work last night had taken a muscle relaxer prior to getting into an [employer]. By the time the patient had arrived at her destination she was unresponsive in the back of the Uber. Subsequently the patient was brought to the ED. The patient states she was given a muscle relaxer by a friend and does not know the name of the medication. The patient states she had never taken one before and had taken it a cousin of her chronic foot pain. Patient denied any preceding palpitations, chest pain or shortness of breath. Patient currently denies complaints Location: Mental state Duration: [See above] Quality: [See above] Severity: [See above] Modifying factors: [see above] Context: [see above] Mode of transportation: [not driving] ED Past Medical Hx - Past Medical History Hx Hypertension: Yes Hx Renal Disease: Yes Hx Psychiatric Treatment: Yes (depression) - Surgical History Additional Surgical History: LAVG 1997 ( not being used anymore ) - Family History Family history: no significant - Social History Smoking Status: Never Smoker Substance Use Type: None (denies illicit drug use) - Medications Home Medications: Home Medications Medication Instructions Recorded Confirmed Last Taken Type Cyclobenzaprine [Flexeril 10 MG 10 mg PO DAILY PRN 12/25/18 12/25/18 12/25/18 History TAB] ED Review of Systems ROS: Stated complaint: UNRESPONSIVE Other details as noted in HPI Constitutional: no symptoms reported Eyes: denies: eye pain ENT: denies: throat pain Respiratory: no symptoms reported Cardiovascular: denies: chest pain Endocrine: no symptoms reported Gastrointestinal: denies: abdominal pain Genitourinary: denies: dysuria Musculoskeletal: myalgia Neurological: denies: headache Physical Exam - Physical Exam Physical Exam: GENERAL: The patient is well-developed well-nourished female lying on stretcher not appearing to be in acute distress. [] HEENT: Normocephalic. Atraumatic. Extraocular motions are intact. Patient has moist mucous membranes. NECK: Supple. No meningitic signs are noted. Trachea midline CHEST/LUNGS: Clear to auscultation. There is no respiratory distress noted. HEART/CARDIOVASCULAR: Regular. There is no tachycardia. There is no gallop rub or murmur. ABDOMEN: Abdomen is soft, nontender. Patient has normal bowel sounds. There is no abdominal distention. SKIN: There is no rash. There is no edema. There is no diaphoresis. NEURO: The patient is awake, alert, and oriented. The patient is cooperative. The patient has no focal neurologic deficits. The patient has normal speech. Cranial nerves II through XII grossly intact, no drift MUSCULOSKELETAL: There is no evidence of acute injury. ED Medical Decision Making - Lab Data Result diagrams: 12/25/18 09:27 12/25/18 09:27 Laboratory Tests 12/25/18 12/25/18 12/25/18 09:27 09:27 09:27 WBC 5.5 RBC 3.50 L Hgb 10.6 Hct 31.2 MCV 89 MCH 30 MCHC 34 RDW 15.0 Plt Count 586 H Lymph % (Auto) 18.5 [place] % (Auto) 12.3 H Eos % (Auto) 3.2 Baso % (Auto) 0.9 Lymph # 1.0 L [place] # 0.7 Eos # 0.2 Baso # 0.0 Seg Neutrophils % 65.1 Seg Neutrophils # 3.6 Sodium 135 L Potassium 4.4 Chloride 97.6 L Carbon Dioxide 24 Anion Gap 18 BUN 35 H Creatinine 2.0 H Estimated GFR 31 BUN/Creatinine Ratio 18 Glucose 124 H Calcium 8.5 Total Bilirubin 0.30 AST 17 ALT 13 Alkaline Phosphatase 105 Ammonia 26.0 Total Creatine Kinase CK-MB (CK-2) CK-MB (CK-2) Rel Index Troponin T < 0.010 Total Protein 6.9 Albumin 2.8 L Albumin/Globulin Ratio 0.7 Urine Opiates Screen Urine Methadone Screen Ur Barbiturates Screen Ur Phencyclidine Scrn Ur Amphetamines Screen U Benzodiazepines Scrn Urine Cocaine Screen U Marijuana (THC) Screen Drugs of Abuse Note Plasma/Serum Alcohol 12/25/18 12/25/18 12/25/18 09:27 09:27 10:34 WBC RBC Hgb Hct MCV MCH MCHC RDW Plt Count Lymph % (Auto) [place] % (Auto) Eos % (Auto) Baso % (Auto) Lymph # [place] # Eos # Baso # Seg Neutrophils % Seg Neutrophils # Sodium Potassium Chloride Carbon Dioxide Anion Gap BUN Creatinine Estimated GFR BUN/Creatinine Ratio Glucose Calcium Total Bilirubin AST ALT Alkaline Phosphatase Ammonia Total Creatine Kinase 145 H CK-MB (CK-2) 1.9 CK-MB (CK-2) Rel Index 1.3 Troponin T Total Protein Albumin Albumin/Globulin Ratio Urine Opiates Screen Presumptive negative Urine Methadone Screen Presumptive negative Ur Barbiturates Screen Presumptive negative Ur Phencyclidine Scrn Presumptive negative Ur Amphetamines Screen Presumptive negative U Benzodiazepines Scrn Presumptive negative Urine Cocaine Screen Presumptive positive U Marijuana (THC) Screen Presumptive negative Drugs of Abuse Note Disclamer Plasma/Serum Alcohol < 0.01 12/25/18 11:25 WBC RBC Hgb Hct MCV MCH MCHC RDW Plt Count Lymph % (Auto) [place] % (Auto) Eos % (Auto) Baso % (Auto) Lymph # [place] # Eos # Baso # Seg Neutrophils % Seg Neutrophils # Sodium Potassium Chloride Carbon Dioxide Anion Gap BUN Creatinine Estimated GFR BUN/Creatinine Ratio Glucose Calcium Total Bilirubin AST ALT Alkaline Phosphatase Ammonia Total Creatine Kinase CK-MB (CK-2) CK-MB (CK-2) Rel Index Troponin T < 0.010 Total Protein Albumin Albumin/Globulin Ratio Urine Opiates Screen Urine Methadone Screen Ur Barbiturates Screen Ur Phencyclidine Scrn Ur Amphetamines Screen U Benzodiazepines Scrn Urine Cocaine Screen U Marijuana (THC) Screen Drugs of Abuse Note Plasma/Serum Alcohol - EKG Data -: EKG Interpreted by Ne EKG shows normal: sinus rhythm Rate: normal - EKG Data When compared to previous EKG there are: previous EKG unavailable Interpretation: other (no ischemic changes seen) - Radiology Data Radiology results: report reviewed (CT head), image reviewed (CT head) [facility] [address] [place] [address] Cat Scan Report Signed Patient: CHASE FERNANDEZ MR#: [id number] : 1960 Acct:[id number] Age/Sex: 58 / F ADM Date: 12/25/18 Loc: ED Attending Dr: Ordering Physician: SOHAIL DESAI MD Date of Service: 12/25/18 Procedure(s): CT head/brain wo con Accession Number(s): [id number] cc: SOHAIL DESAI MD CT HEAD WITHOUT CONTRAST: HISTORY: Episode of unresponsiveness. TECHNIQUE: Sequential 2.5mm CT images. COMPARISON: none. FINDINGS: Cerebral Parenchyma: Within normal limits. Cerebellum: Within normal limits. Brainstem: Within normal limits. Ventricles: Normal. Sella: Normal. Extra-axial spaces: Normal. Basal Cisterns: Normal. Intracranial Hemorrhage: None. Midline Shift: None. Calvarium: Normal. Sinuses: Normal. Mastoid Air Cells: Normal. Visualized Orbits: Normal. IMPRESSION: Cranial CT scan within normal limits. Transcribed By: TTR Dictated By: MIGUELITO MELLO JR, MD Electronically Authenticated By: MIGUELITO MELLO JR, MD Signed Date/Time: 12/25/18 102 DD/ 1025 TD/TT: 12/25/18 1025 - Differential Diagnosis medication reaction, oversedation, syncope, dysrhythmia, ICH Critical care attestation.: If time is entered above; I have spent that time in minutes in the direct care of this critically ill patient, excluding procedure time. ED Disposition Clinical Impression: Syncope, Cocaine abuse Disposition: DC-01 TO HOME OR SELFCARE Is pt being admited?: No Does the pt Need Aspirin: No Condition: Stable Instructions: Syncope (ED) Additional Instructions: Return to the emergency department immediately should you develop worsening symptoms, fever, inability to tolerate food or liquid or any other concerns. Referrals: BRUNO KRUSE MD [Primary Care Provider] - 3-5 Days Time of Disposition: 12:22
[2018-12-25] MEDS ORDERED: NACL 0.9% 1000 ML 1,000 ML ONE (09:31)
[2018-12-25] MEDS ORDERED: NACL 0.9% 1000 ML 1,000 ML IV ONE (09:38)
[2018-12-25 09:40] LABS: Basophils % (Auto) 0.9 % (0.0-1.8); Eosinophils # (Auto) 0.2 K/mm3 (0.0-0.4); Eosinophils % (Auto) 3.2 % (0.0-4.3); Hematocrit 31.2 % (30.3-42.9); Hemoglobin 10.6 gm/dl (10.1-14.3); Lymphocytes % (Auto) 18.5 % (13.4-35.0); Mean Corpuscular HGB Conc 34 % (30-34); Mean Corpuscular Volume 89 fl (79-97); Monocytes # (Auto) 0.7 K/mm3 (0.0-0.8); Monocytes % (Auto) 12.3 % (0.0-7.3); Platelet Count 586 K/mm3 (140-440)
[2018-12-25 10:01] LABS: Creatine Kinase MB 1.9 ng/mL (0.0-4.0)
[2018-12-25 10:04] LABS: Alanine Aminotransferase 13 units/L (7-56); Albumin 2.8 g/dL (3.9-5); BUN/Creatinine Ratio 18; Blood Urea Nitrogen 35 mg/dL (7-17); Calcium 8.5 mg/dL (8.4-10.2); Hemolysis Index 4
--- NOTE | 2018-12-25 10:31 | Cat Scan Report ---
CT HEAD WITHOUT CONTRAST: HISTORY: Episode of unresponsiveness. TECHNIQUE: Sequential 2.5mm CT images. COMPARISON: none. FINDINGS: Cerebral Parenchyma: Within normal limits. Cerebellum: Within normal limits. Brainstem: Within normal limits. Ventricles: Normal. Sella: Normal. Extra-axial spaces: Normal. Basal Cisterns: Normal. Intracranial Hemorrhage: None. Midline Shift: None. Calvarium: Normal. Sinuses: Normal. Mastoid Air Cells: Normal. Visualized Orbits: Normal. IMPRESSION: Cranial CT scan within normal limits.
[2018-12-25 11:17] LABS: Amphetamine Screen,Urine PRESUMPTIVE NEGATIVE; Benzodiazepines Screen,Urine PRESUMPTIVE NEGATIVE; Cannabinoid Screen,Urine PRESUMPTIVE NEGATIVE; Methadone Screen,Urine PRESUMPTIVE NEGATIVE; Opiate Screen,Urine PRESUMPTIVE NEGATIVE
[2018-12-25 11:30] LABS: Cocaine Screen,Urine PRESUMPTIVE POSITIVE
[2018-12-25 12:51] VITALS: BP 147/80
[2018-12-25] MEDS ORDERED: TORADOL IV ONE (12:51)
== END 2018-12-25 13:00 | disposition home or self-care (01) ==
LOC: ED 08:19
DX: R55 Syncope and collapse (principal); F14.10 Cocaine abuse, uncomplicated; I10 Essential (primary) hypertension; F32.9 Major depressive disorder, single episode, unspecified; Z88.6 Allergy status to analgesic agent
CPT/HCPCS: 36415; 70450; 80053; 80307; 82140; 82550; 82553; 84484; 85025; 93005; 93010; 96361; 96374; 99285; G0480; J1885; J7030; 80320

== ENCOUNTER 2019-10-31 14:42 | Emergency (ER) | payer SELFPAY ==
--- NOTE | 2019-10-31 16:05 | Emergency Department Report ---
Chief Complaint: Fall Stated Complaint: LFT SIDE WORK INJURY/PAIN Time Seen by Provider: 10/31/19 15:59 - HPI History of Present Illness: pt is a 59 yo female who states she had a fall at work yesterday states she was walking outside walking up to the door and she slid off the sidewalk states she landed on her left arm and shoulder and left hip she is ambulatory without difficulty no LOC no vomiting no numbness no weakness no bowel or bladder incontinence PMHx HTN -did not take her medication today, she states she wanted to come to the ER first before she took her medication, she has no symptoms related to her BP, no HERR, no vision changes, no numbness, weakness, no CP, no SOB states she takes amlodipine and labetolol Vitals with elevated blood pressure, otherwise normal, secondary to patient not taking her blood pressure medication today, she states she will take it when she goes home, the uptodate medical literature does not recommend emergent lowering of asymptomatic blood pressure elevation On exam: Non toxic appearing, no acute distress atraumatic, normocephalic normal appearance of the eyes, PERRL, EOMI, no periorbital edema or ecchymosis moist mucus membranes regular heart rate and rhythm, no gallops, no rubs, no murmurs, no chest wall tenderness to palpation breath sounds are clear bilaterally, no w/r/r A&O x4, no focal neuro deficit, 5 out of 5 strength in the bilateral upper extremities and lower extremities, sensation intact throughout, no focal neuro deficit, normal gait No C-spine, T-spine, L-spine midline spinal or paraspinal tenderness to palpation, no step-offs, no deformities Full range of motion of the bilateral upper extremities without difficulty, she is able to lift both arms above her head, no sulcus sign, clavicles are equal, no clavicular ttp, no joint laxity, patient has mild tenderness to palpation to the left triceps muscle, full range of motion of the triceps, the triceps is intact, there is no ecchymosis, no edema, no bony tenderness to palpation of the left upper extremity, mild tenderness to palpation of the left lateral thigh, no bony tenderness to palpation of the left hip or left femur, full range of motion of the left lower extremity without difficulty, patient is neurovascularly intact throughout skin is warm, dry, intact Patient is presenting with signs of muscle strain No signs of acute traumatic fracture or dislocation pt does not need emergent XR imaging at this time Discussed supportive care and symptomatic treatment with patient Patient will be referred to primary care doctor and orthopedic Discussed patient's blood pressure with her, discussed the risk associated with elevated blood pressure, discussed low-sodium, blood pressure monitoring, 30 minutes of daily exercise, taking her medication as prescribed by her doctor, patient verbalized understanding, she states she does have a primary care doctor she can follow up with Discussed strict return precautions with patient - Exam Vital Signs: Vital Signs 10/31/19 14:46 Temperature 98.0 F Pulse Rate 62 Respiratory 18 Rate Blood Pressure 210/117 O2 Sat by Pulse 100 Oximetry MSE screening note: Focused history and physical exam performed. ED Disposition for MSE Clinical Impression: Left thigh pain, Elevated blood pressure reading Strain of left triceps Qualifiers: Encounter type: initial encounter Qualified Code(s): S46.312A - Strain of muscle, fascia and tendon of triceps, left arm, initial encounter Disposition: MED SCREENING EXAM-LEFT Is pt being admited?: No Does the pt Need Aspirin: No Condition: Stable Instructions: Muscle Strain (ED), Chronic Hypertension (ED) Additional Instructions: may alternate tylenol then ibuprofen every 6-8 hours as needed for pain. may use ice pack, heating pad, rest, epsom salt bath. follow up with a primary care doctor. follow up with an orthopedic doctor. please take your blood pressure medication. please monitor your blood pressure three times a day and keep a log. eat a low sodium diet, increase your water intake, get 30 minutes of daily exercise. return to the emergency room for any new or worsening symptoms. Referrals: DAVONTE HARRIS MD [Staff Physician] - 3-5 Days [facility] [Provider Group] - 3-5 Days [facility] [Provider Group] - 3-5 Days GOKUL LEVI MD [Staff Physician] - 3-5 Days [facility] [Provider Group] - 3-5 Days Forms: Work/School Release Form(ED) Time of Disposition: 16:06 Print Language: LAO
[2019-10-31 16:44] VITALS: BP 200/100
== END 2019-10-31 16:44 | disposition left against medical advice (07) ==
LOC: ED 14:42
DX: S46.312A Strain of muscle, fascia and tendon of triceps, left arm, initial encounter (principal); R03.0 Elevated blood-pressure reading, without diagnosis of hypertension; M79.652 Pain in left thigh; Z88.8 Allergy status to other drugs, medicaments and biological substances; W18.30XA Fall on same level, unspecified, initial encounter; Y93.89 Activity, other specified; Y92.89 Other specified places as the place of occurrence of the external cause; Y99.0 Civilian activity done for income or pay
CPT/HCPCS: 99281

== ENCOUNTER 2020-05-04 16:49 | Emergency (ER) | payer OTHER ==
[2020-05-04 17:08] VITALS: BP 161/89
--- NOTE | 2020-05-04 17:10 | Emergency Department Report ---
ED Rash HPI - HPI Stated Complaint: RASH Time Seen by Provider: 05/04/20 17:02 Location: Upper Extremities Suspected Cause: Unknown Rash Symptoms: Yes Itching, No Facial Swelling, No Tongue/Oral Swelling, No Breathing Difficulties, No Choking Sensation, No Wheezing/Dyspnea, No Peeling, No Blistering, No Fever, No Lightheaded, No Malaise, No Myalgias Severity: mild Other History: This is a 60-year-old female nontoxic well in appearance with no signs of distress presents to the ED with complaint of left wrist, web fingers, and left elbow fold rash with itching x several days. Patient denies any swelling, pus, or drainage. Patient denies any other symptoms. Denies any fever, chills, headache, nausea, vomiting, chest pain or SOB. Denies any other complaints. ED Review of Systems ROS: Stated complaint: RASH Other details as noted in HPI Comment: All other systems reviewed and negative Constitutional: denies: chills, fever Eyes: denies: eye pain, eye discharge, vision change ENT: denies: ear pain, throat pain Respiratory: denies: cough, shortness of breath, wheezing Cardiovascular: denies: chest pain, palpitations Endocrine: no symptoms reported Gastrointestinal: denies: abdominal pain, nausea, diarrhea Genitourinary: denies: urgency, dysuria, discharge Musculoskeletal: denies: back pain, joint swelling, arthralgia Skin: rash. denies: lesions Neurological: denies: headache, weakness, paresthesias Psychiatric: denies: anxiety, depression Hematological/Lymphatic: denies: easy bleeding, easy bruising ED Past Medical Hx - Past Medical History Hx Hypertension: Yes Hx Renal Disease: Yes Hx Psychiatric Treatment: Yes (depression) - Surgical History Additional Surgical History: LAVG 1997 ( not being used anymore ) - Social History Smoking Status: Never Smoker - Medications Home Medications: Home Medications Medication Instructions Recorded Confirmed Last Taken Type Cyclobenzaprine [Flexeril 10 MG 10 mg PO DAILY PRN 12/25/18 12/25/18 12/25/18 History TAB] Ibuprofen [Motrin 800 MG tab] 800 mg PO Q8HR PRN #10 tablet 12/25/18 Unknown Rx Permethrin 5% [Acticin 5% CREAM] 1 applicatio TP ONCE #1 tube 05/04/20 Unknown Rx Rash Exam - Exam General: Vital signs noted. No distress. Alert and acting appropriately. HEENT: No Periorbital Edema, No Conjuctival Injection, No Chemosis, No Perioral Edema, No Tongue Edema, No Uvular Edema, No Compromised Airway, No Drooling Lungs: Yes Good Air Exchange (Normal Breath Sounds), No Wheezes, No Ronchi, No Stridor, No Cough, No Labored Respirations, No Retractions, No Use of Accessory Muscles, No Other Abnormal Lung Sounds Heart: Yes Regular, No Murmur Skin: Yes Other (Erythematous with excoriated papules to skin folds to left wrist, web fingers, and elbow fold of left side), No Urticarial Rash, No Maculopapular Rash, No Morbilliform rash, No Bulla(e), No Excoriations, No Weeping, No Tenderness, No Erythema, No Edema, No Encrustations Other: Positive: Abdomen Normal, Neurologic Normal, Musculoskeletal Normal ED Course Vital Signs 05/04/20 17:05 Temperature 97.8 F Pulse Rate 92 H Respiratory 18 Rate Blood Pressure 161/89 [Right] O2 Sat by Pulse 95 Oximetry - Reevaluation(s) Reevaluation #1: 05/04/20 17:08 Patient is speaking in full sentences with no signs of distress noted. ED Medical Decision Making - Medical Decision Making Patient was instructed to Follow-up with a primary care doctor in 3-5 days or if symptoms worsen and continue return to emergency room as soon as possible. At time of discharge, the patient does not seem toxic or ill in appearance. No acute signs of distress noted. Patient agrees to discharge treatment plan of care. No further questions noted by the patient. Critical care attestation.: If time is entered above; I have spent that time in minutes in the direct care of this critically ill patient, excluding procedure time. ED Disposition Clinical Impression: Scabies Disposition: - TO HOME OR SELFCARE Is pt being admited?: No Does the pt Need Aspirin: No Condition: Stable Instructions: Scabies (ED), Permethrin (On the skin) Additional Instructions: Follow-up with a primary care doctor in 3-5 days or if symptoms worsen and continue return to the emergency department as soon as possible. Prescriptions: Permethrin 5% [Acticin 5% CREAM] 1 applicatio TP ONCE #1 tube Referrals: PRIMARY CARE, [Referring] - 3-5 Days DAVONTE HARRIS MD [Staff Physician] - 3-5 Days Forms: Work/School Release Form(ED)
== END 2020-05-04 17:14 | disposition home or self-care (01) ==
LOC: ED 16:49
DX: B86 Scabies (principal); I10 Essential (primary) hypertension; F32.9 Major depressive disorder, single episode, unspecified; Z98.890 Other specified postprocedural states; Z87.448 Personal history of other diseases of urinary system; Z79.1 Long term (current) use of non-steroidal anti-inflammatories (NSAID); Z79.899 Other long term (current) drug therapy; Z88.8 Allergy status to other drugs, medicaments and biological substances
CPT/HCPCS: 99282

== ENCOUNTER 2020-07-13 16:53 | Observation (INO) | payer OTHER ==
--- NOTE | 2020-07-13 17:19 | Event Note ---
ED Screening Note ED Screening Note: SOB that began couple days ago went to PCP on 07/09/2019 by telemedicine visit using albuterol inhaler states CXR showed findings of possible COVID exertional SOB states her abdomen has been swelling able to have a small BM today states having mild CP no fever +cough SOB worse with laying flat no leg swelling PMHx HTN, CKD, Hep C allergy: benzapril non smoker no sick contact no recent travel This initial assessment/diagnostic orders/clinical plan/treatment(s) is/are subject to change based on patients health status, clinical progression and re- assessment by fellow clinical providers in the ED. Further treatment and workup at subsequent clinical providers discretion. Patient/guardian urged not to elope from the ED as their condition may be serious if not clinically assessed and managed. Initial orders include: labs, CXR, EKG
--- NOTE | 2020-07-13 18:02 | XRay Report ---
CHEST 2 VIEWS INDICATION: SOB, HTN urgency. COMPARISON: None. FINDINGS: Support devices: None. Heart: Enlarged. Lungs/Pleura: Increased interstitial markings at the mid/lower zones. No significant pleural effusi on. IMPRESSION: 1. Cardiomegaly. 2. Edema versus atypical infection. Signer Name: Alvarado Lopez MD Signed: 07/13/2020 5:57 PM Workstation Name: [id number]
[2020-07-13 18:23] LABS: Basophils # (Auto) 0.1 K/mm3 (0.0-0.1); Basophils % (Auto) 0.7 % (0.0-1.8); Eosinophils # (Auto) 0.5 K/mm3 (0.0-0.4); Eosinophils % (Auto) 5.5 % (0.0-4.3); Hematocrit 31.7 % (30.3-42.9); Hemoglobin 10.5 gm/dl (10.1-14.3); Lymphocytes # (Auto) 2.5 K/mm3 (1.2-5.4); Mean Corpuscular HGB Conc 33 % (30-34); Mean Corpuscular Volume 91 fl (79-97); Monocytes # (Auto) 0.6 K/mm3 (0.0-0.8); Monocytes % (Auto) 7.4 % (0.0-7.3); Platelet Count 295 K/mm3 (140-440); Red Blood Count 3.49 M/mm3 (3.65-5.03); Red Cell Distribution Width 14.3 % (13.2-15.2)
[2020-07-13 18:36] LABS: Albumin 3.3 g/dL (3.9-5); Calcium 8.8 mg/dL (8.4-10.2)
[2020-07-13 18:37] LABS: INR 0.98 (0.87-1.13)
[2020-07-13 18:38] LABS: Partial Thromboplastin Time 29.8 Sec. (24.2-36.6)
--- NOTE | 2020-07-13 19:14 | Emergency Department Report ---
ED Shortness of Breath HPI - General Chief Complaint: Dyspnea/Respdistress Stated Complaint: SOB Time Seen by Provider: 07/13/20 17:15 Source: patient Mode of arrival: Ambulatory Limitations: No Limitations - History of Present Illness Initial Comments: 60-year-old female, history of hypertension, chronic kidney disease, presents to ED with shortness of breath. Patient states symptoms began 5 days ago, with shortness of breath worsening on yesterday. She had an appointment with her physician 4 days ago, states her chest x-ray was done that was abnormal. She states her physician told her that it looks like she may have Covid. She reports a Covid test was done, but she has not yet received the results. Patient denies any fever or chills. She reports associated cough, vomiting and diarrhea, and headache. Patient states she was given a prescription for azithromycin (which she has finished), cough syrup, and albuterol inhaler. Patient states "my blood pressure medicine is not working." She reports she is compliant with her BP meds. She denies any lower extremity swelling. She denies any drug use. MD Complaint: shortness of breath -: days(s) (5) Severity: moderate Consistency: intermittent Improves With: rest Worsens With: exertion Associated Symptoms: cough, nausea/vomiting - Related Data Home Oxygen Therapy: No Home Medications Medication Instructions Recorded Confirmed Last Taken Labetalol 200mg TAB 07/13/20 Unknown Valsartan-Hctz 320-12.5 mg Tab 07/13/20 Unknown amLODIPine 07/13/20 Unknown Allergies Allergy/AdvReac Type Severity Reaction Status Date / Time benazepril HCl Allergy Angioedema Verified 07/13/20 17:00 [From Lotensin] ED Review of Systems ROS: Stated complaint: SOB Other details as noted in HPI Comment: All other systems reviewed and negative Constitutional: denies: chills, fever ENT: other (Denies loss of smell or taste) Respiratory: orthopnea, SOB with exertion Gastrointestinal: vomiting, diarrhea Neurological: headache ED Past Medical Hx - Past Medical History Hx Hypertension: Yes Hx Renal Disease: Yes Hx Psychiatric Treatment: Yes (depression) Additional medical history: HEP C - Surgical History Additional Surgical History: LAVG 1997 ( not being used anymore ) - Social History Smoking Status: Never Smoker - Medications Home Medications: Home Medications Medication Instructions Recorded Confirmed Last Taken Type Labetalol 200mg TAB 07/13/20 Unknown History Valsartan-Hctz 320-12.5 mg Tab 07/13/20 Unknown History amLODIPine 07/13/20 Unknown History ED Physical Exam - General Limitations: No Limitations General appearance: alert, in no apparent distress - Head Head exam: Present: atraumatic, normocephalic - Eye Eye exam: Present: normal appearance, EOMI - ENT ENT exam: Present: mucous membranes moist - Neck Neck exam: Present: normal inspection - Respiratory Respiratory exam: Present: normal lung sounds bilaterally. Absent: respiratory distress - Cardiovascular Cardiovascular Exam: Present: regular rate, normal rhythm - GI/Abdominal GI/Abdominal exam: Present: soft. Absent: distended, tenderness - Extremities Exam Extremities exam: Present: normal inspection. Absent: pedal edema, calf tenderness - Neurological Exam Neurological exam: Present: alert, oriented X3 - Psychiatric Psychiatric exam: Present: normal affect, normal mood - Skin Skin exam: Present: warm, dry, intact, normal color ED Course Vital Signs 07/13/20 07/13/20 07/13/20 17:04 19:42 19:47 Temperature 98.5 F 98.7 F Pulse Rate 77 74 72 Respiratory 24 20 Rate Blood Pressure 214/121 205/118 205/118 Blood Pressure [Right] O2 Sat by Pulse 98 97 Oximetry 07/13/20 07/13/20 20:26 21:20 Temperature Pulse Rate 71 Respiratory Rate Blood Pressure Blood Pressure 232/124 154/100 [Right] O2 Sat by Pulse 97 Oximetry - Reevaluation(s) Reevaluation #1: 07/13/20 19:35 Ambulatory O2 95 to 97% on room air. ED Medical Decision Making - Lab Data Result diagrams: 07/13/20 17:53 07/13/20 20:38 - EKG Data -: EKG Interpreted by Nm EKG shows normal: sinus rhythm, axis, QRS complexes, ST-T waves Rate: normal - EKG Data Interpretation: other (Prolonged QT) - Radiology Data Radiology results: report reviewed, image reviewed - Medical Decision Making 60-year-old female presents to ED with shortness of breath. COVID-19 vs new onset CHF. Patient reports cough, orthopnea, uncontrolled hypertension, vomiting and diarrhea. Patient afebrile. Chest x-ray shows cardiomegaly with pulmonary edema versus atypical viral pneumonia. Patient had COVID-19 test a few days ago, however has not yet received her results. Covid markers are all within normal limits except for slightly elevated LDH. However, BNP is 9,000. Patient will be treated as a PUI, and will obtain Covid test in the morning. Will obtain blood cultures and cover with antibiotics. We will also administer Lasix, as this may be new onset CHF. Blood pressure now improved following clonidine. Patient will be admitted to hospitalist, Dr. Thomas, for further management. - Differential Diagnosis COVID-19, pneumonia, CHF Critical care attestation.: If time is entered above; I have spent that time in minutes in the direct care of this critically ill patient, excluding procedure time. ED Disposition Clinical Impression: Suspected COVID-19 virus infection, Uncontrolled hypertension, New onset of congestive heart failure Disposition: OP ADMIT IP TO THIS HOSP Is pt being admited?: Yes Condition: Stable Instructions: Hypertension (ED) Referrals: PRIMARY CARE, [Primary Care Provider] - 3-5 Days Time of Disposition: 21:43
[2020-07-13] MEDS ORDERED: cloNIDine 0.2 MG TAB PO ONE (19:43)
[2020-07-13] MEDS ORDERED: IBUPROFEN 800 MG TAB PO ONE (19:44)
[2020-07-13 21:14] LABS: C-Reactive Protein 0.2 mg/dL (0.00-1.30)
[2020-07-13] MEDS ORDERED: FUROSEMIDE 40 MG/4 ML INJ IV ONE (21:41)
[2020-07-13] MEDS ORDERED: AZITHROMYCIN 250 MG TAB PO ONE (21:41)
[2020-07-13] MEDS ORDERED: cefTRIAXone/NS 1 GM/50 ML 1 GM/50 ML BAG IV ONE (21:41)
[2020-07-13] MEDS ORDERED: ONDANSETRON 4 MG/2 ML INJ IV PRN (23:17)
[2020-07-13] MEDS ORDERED: MORPHINE 2 MG/1 ML INJ IV PRN (23:22)
[2020-07-13] MEDS ORDERED: MAGNESIUM HYDROXIDE (MOM) ORAL LIQD UDC PO PRN (23:22)
--- NOTE | 2020-07-13 23:36 | History and Physical Report ---
History of Present Illness Date of examination: 07/13/20 Date of admission: 07/13/2020 Chief complaint: Shortness of breath History of present illness: 60-year-old female with known history of hypertension, chronic kidney disease and history of depression presenting to the emergency room today complaining of shortness of breath which started about 5 days ago. Shortness of breath is said to have gotten worse over the past 24 hours. She had gone to see primary care physician few days ago and a chest x-ray was said to be abnormal and suspicious for Covid 19. A Covid test was subsequently done but result is still being awaited. Patient denies any fever or chills, denies any chest pain, she has had some headache but no dizziness, no nausea but had some vomiting and diarrhea, no abdominal pain, no loss of taste or smell. She has been given some inhaler,z- armando and cough syrup but indicates that her symptoms are not improving. Upon arrival in the emergency room today blood pressure was quite elevated. Chest x-ray done today was suspicious for atypical pneumonia versus pulmonary edema. Patient is being admitted for possible new onset CHF versus pneumonia with possible COVID-19. Past History Past Medical History: hypertension, renal failure, other (Depression, hepatitis C) Past Surgical History: No surgical history Social history: no significant social history Family history: no significant family history Medications and Allergies Allergies Allergy/AdvReac Type Severity Reaction Status Date / Time benazepril HCl Allergy Angioedema Verified 07/13/20 17:00 [From [facility]] Home Medications Medication Instructions Recorded Confirmed Last Taken Type Labetalol 200mg TAB 07/13/20 Unknown History Valsartan-Hctz 320-12.5 mg Tab 07/13/20 Unknown History amLODIPine 07/13/20 Unknown History Active Meds: Active Medications Acetaminophen (Acetaminophen 325 Mg Tab) 650 mg PO Q4H PRN PRN Reason: Pain MILD(1-3)/Fever >100.5/HERR Ceftriaxone Sodium (Rocephin/Ns 2 Gm/100 Ml) 2 gm in 100 mls @ 200 mls/hr IV Q24H SUNIL; Protocol Ondansetron HCl (Ondansetron 4 Mg/2 Ml Inj) 4 mg IV Q8H PRN PRN Reason: Nausea And Vomiting Sodium Chloride (Sodium Chloride 0.9% 10 Ml Flush Syringe) 10 ml IV BID SUNIL Sodium Chloride (Sodium Chloride 0.9% 10 Ml Flush Syringe) 10 ml IV PRN PRN PRN Reason: LINE FLUSH Review of Systems Constitutional: no fever, no chills Ears, nose, mouth and throat: no nasal congestion, no sore throat Cardiovascular: no chest pain, no palpitations Respiratory: cough, shortness of breath Gastrointestinal: no abdominal pain, no nausea, no vomiting, no diarrhea Genitourinary Female: no flank pain, no dysuria, no hematuria Musculoskeletal: no neck pain, no low back pain Integumentary: no rash, no pruritis Neurological: no headaches, no confusion Psychiatric: no anxiety, no depression Exam - Constitutional Vitals: Temp Pulse Resp BP Pulse Ox 98.7 F 71 20 154/100 97 07/13/20 19:42 07/13/20 21:20 07/13/20 19:42 07/13/20 21:20 07/13/20 21:20 General appearance: Present: no acute distress, well-nourished - EENT Eyes: Present: PERRL, EOM intact. Absent: scleral icterus ENT: hearing intact, clear oral mucosa, dentition normal - Respiratory Respiratory effort: normal Respiratory: bilateral: rales - Cardiovascular Rhythm: regular Heart Sounds: Present: S1 & S2. Absent: gallop, systolic murmur, diastolic murmur, rub - Extremities Extremities: no ischemia, pulses intact, pulses symmetrical, No edema, Full ROM Peripheral Pulses: within normal limits - Abdominal General gastrointestinal: Present: soft, non-tender, non-distended, normal bowel sounds. Absent: mass - Integumentary Integumentary: Present: clear, warm, dry. Absent: rash - Musculoskeletal Musculoskeletal: strength equal bilaterally - Psychiatric Psychiatric: appropriate mood/affect, intact judgment & insight, memory intact, cooperative - Neurologic Neurologic: CNII-XII intact, no focal deficits, moves all extremities Results - Labs CBC & Chem 7: 07/13/20 17:53 07/13/20 20:38 Labs: Abnormal lab results 07/13/20 07/13/20 07/13/20 Range/Units 17:53 17:53 20:38 RBC 3.49 L (3.65-5.03) M/mm3 [place] % (Auto) 7.4 H (0.0-7.3) % Eos % (Auto) 5.5 H (0.0-4.3) % Eos # (Auto) 0.5 H (0.0-0.4) K/mm3 D-Dimer 275.27 H (0-234) ng/mlDDU BUN 38 H (7-17) mg/dL Creatinine 1.9 H (0.6-1.2) mg/dL Alkaline Phosphatase 130 H (35-129) units/L Lactate Dehydrogenase (91-180) units/L NT-Pro-B Natriuret Pep 9796 H (0-900) pg/mL Total Protein 5.7 L (6.3-8.2) g/dL Albumin 3.3 L (3.9-5) g/dL 07/13/20 Range/Units 20:38 RBC (3.65-5.03) M/mm3 [place] % (Auto) (0.0-7.3) % Eos % (Auto) (0.0-4.3) % Eos # (Auto) (0.0-0.4) K/mm3 D-Dimer (0-234) ng/mlDDU BUN (7-17) mg/dL Creatinine (0.6-1.2) mg/dL Alkaline Phosphatase (35-129) units/L Lactate Dehydrogenase 309 H (91-180) units/L NT-Pro-B Natriuret Pep (0-900) pg/mL Total Protein (6.3-8.2) g/dL Albumin (3.9-5) g/dL Assessment and Plan - Patient Problems (1) New onset of congestive heart failure Current Visit: Yes Status: Acute Plan to address problem: Patient admitted and placed on diuretics. Will schedule patient for echocardiogram. Will monitor inputs and outputs and also monitor daily weights. We will place a consult to cardiology for evaluation. (2) Suspected COVID-19 virus infection Current Visit: Yes Status: Acute Plan to address problem: Patient placed on isolation precautions. We will await COVID-19 testing. Meanwhile also placed on empiric IV antibiotics for pneumonia. Consult placed to infectious disease for evaluation and recommendation. (3) Uncontrolled hypertension Current Visit: Yes Status: Acute Plan to address problem: We will resume patient's routine home medications and monitor vital signs closely. We also place patient on IV antihypertensive medication as needed for optimal blood pressure control. (4) Chronic kidney disease Current Visit: Yes Status: Acute Plan to address problem: We will monitor BUN and creatinine. Creatinine seems to be at baseline. We will place consult to nephrology for evaluation prior to discharge. (5) DVT prophylaxis Current Visit: Yes Status: Acute Plan to address problem: Patient placed on subcutaneous heparin. (6) Full code status Current Visit: Yes Status: Acute Plan to address problem: Patient is a full code.
[2020-07-14] MEDS ORDERED: hydrALAZINE 20 MG/1 ML INJ IV ONE (00:51)
[2020-07-14] MEDS: hydrALAZINE 20 MG/1 ML INJ IV PRN ×2 (05:00→09:18)
[2020-07-14] MEDS: HEPARIN 5,000 UNIT/1 ML VIAL SUB-Q SCH ×3 (05:30→21:05)
[2020-07-14] MEDS: ACETAMINOPHEN 325 MG TAB PO PRN ×4 (05:40→23:00)
[2020-07-14 05:57] LABS: Basophils # (Auto) 0.1 K/mm3 (0.0-0.1); Basophils % (Auto) 0.8 % (0.0-1.8); Eosinophils # (Auto) 0.4 K/mm3 (0.0-0.4); Eosinophils % (Auto) 6.5 % (0.0-4.3); Hematocrit 31.3 % (30.3-42.9); Hemoglobin 10.5 gm/dl (10.1-14.3); Lymphocytes # (Auto) 2.1 K/mm3 (1.2-5.4); Lymphocytes % (Auto) 31.1 % (13.4-35.0); Mean Corpuscular HGB Conc 34 % (30-34); Mean Corpuscular Volume 90 fl (79-97); Monocytes # (Auto) 0.5 K/mm3 (0.0-0.8); Monocytes % (Auto) 7.7 % (0.0-7.3); Platelet Count 298 K/mm3 (140-440); Red Blood Count 3.47 M/mm3 (3.65-5.03); Red Cell Distribution Width 14.1 % (13.2-15.2)
[2020-07-14] MEDS ORDERED: FUROSEMIDE 40 MG/4 ML INJ IV SCH ×2 (06:00→18:00)
[2020-07-14 06:04] LABS: Calcium 8.6 mg/dL (8.4-10.2)
[2020-07-14 06:08] LABS: INR 1.02 (0.87-1.13)
[2020-07-14] MEDS ORDERED: cefTRIAXone/NS 2 GM/100 ML 2 GM/100 ML BAG IV SCH (10:00)
[2020-07-14] MEDS ORDERED: AZITHROMYCIN 500 MG in SODIUM CHLORIDE 0.9% 250ML 250 ML IV SCH (10:00)
--- NOTE | 2020-07-14 10:13 | Consultation ---
History of Present Illness Consult date: 07/14/20 Requesting physician: YUDITH ALVAREZ Consult reason: congestive heart failure History of present illness: The pt is a 60-year-old female with a past medical history of CKD, HTN, hepatitis C, depression. She is previously unknown to our practice. She presented with c/o progressively worsening SOB for appox 3 days prior to arrival. She had gone to see primary care physician few days ago and a chest x- ray was said to be abnormal and suspicious for Covid 19. A Covid test was subsequently done but result is still pending. She has been given some inhaler,z-armando and cough syrup but indicates that her symptoms are not im proving. She denies any fever, chills, cough, chest pain, palpitations, n/v, diaphoresis, dizziness or syncope. Admission BP 214/121. Past History Past Medical History: hypertension, renal failure (CKD), other (Depression, hepatitis C) Past Surgical History: No surgical history Social history: no significant social history Family history: no significant family history Medications and Allergies Allergies Allergy/AdvReac Type Severity Reaction Status Date / Time benazepril HCl Allergy Angioedema Verified 07/13/20 17:00 [From Lotensin] Home Medications Medication Instructions Recorded Confirmed Last Taken Type Labetalol 200mg TAB 07/13/20 Unknown History Valsartan-Hctz 320-12.5 mg Tab 07/13/20 Unknown History amLODIPine 07/13/20 Unknown History Active Meds: Active Medications Acetaminophen (Acetaminophen 325 Mg Tab) 650 mg PO Q4H PRN PRN Reason: Pain MILD(1-3)/Fever >100.5/HERR Last Admin: 07/14/20 05:40 Dose: 650 mg Documented by: Furosemide (Furosemide 40 Mg/4 Ml Inj) 40 mg IV BID@0600,1800 [facility] Last Admin: 07/14/20 05:32 Dose: 40 mg Documented by: Heparin Sodium (Porcine) (Heparin 5,000 Unit/1 Ml Vial) 5,000 unit SUB-Q Q8HR [facility] Last Admin: 07/14/20 05:30 Dose: 5,000 unit Documented by: Hydralazine HCl (Hydralazine 20 Mg/1 Ml Inj) 10 mg IV Q4H PRN PRN Reason: Blood Pressure Last Admin: 07/14/20 09:18 Dose: 10 mg Documented by: Ceftriaxone Sodium (Rocephin/Ns 2 Gm/100 Ml) 2 gm in 100 mls @ 200 mls/hr IV Q24HR [facility]; Protocol Azithromycin 500 mg/ Sodium (Chloride) 250 mls @ 250 mls/hr IV Q24HR [facility]; Protocol Stop: 07/17/20 10:59 Magnesium Hydroxide (Magnesium Hydroxide (Mom) Oral Liqd Udc) 30 ml PO Q4H PRN PRN Reason: Constipation Metoprolol Tartrate (Metoprolol Tartrate 50 Mg Tab) 50 mg PO BID [facility] Morphine Sulfate (Morphine 2 Mg/1 Ml Inj) 2 mg IV Q4H PRN PRN Reason: Pain, Moderate (4-6) Last Admin: 07/14/20 09:01 Dose: 2 mg Documented by: Ondansetron HCl (Ondansetron 4 Mg/2 Ml Inj) 4 mg IV Q8H PRN PRN Reason: Nausea And Vomiting Sodium Chloride (Sodium Chloride 0.9% 10 Ml Flush Syringe) 10 ml IV BID [facility] Sodium Chloride (Sodium Chloride 0.9% 10 Ml Flush Syringe) 10 ml IV PRN PRN PRN Reason: LINE FLUSH Last Admin: 07/14/20 01:00 Dose: 10 ml Documented by: Review of Systems Constitutional: no weight loss, no weight gain, no fever, no chills, no sweats Ears, nose, mouth and throat: no ear pain, no nose pain, no sinus pressure, no sinus pain Cardiovascular: shortness of breath, dyspnea on exertion, no chest pain, no orthopnea, no palpitations, no rapid/irregular heart beat, no edema, no syncope, no lightheadedness Respiratory: no cough, no shortness of breath, no dyspnea on exertion, no congestion, no wheezing, no pain on inspiration Gastrointestinal: no abdominal pain, no nausea, no vomiting, no diarrhea, no constipation, no change in bowel habits Genitourinary Female: no pelvic pain, no flank pain, no dysuria, no urinary frequency, no urgency Musculoskeletal: no neck stiffness, no neck pain, no shooting arm pain, no arm numbness/tingling, no low back pain, no shooting leg pain Integumentary: no rash, no pruritis, no redness, no sores, no wounds Neurological: no head injury, no paralysis, no weakness, no parathesias, no numbness, no tingling, no seizures, no syncope Psychiatric: no anxiety Endocrine: no cold intolerance, no heat intolerance Hematologic/Lymphatic: no easy bruising Allergic/Immunologic: no urticaria Physical Examination Vital Signs Temp Pulse Resp BP Pulse Ox 98.5 F 77 24 214/121 98 07/13/20 17:04 07/13/20 17:04 07/13/20 17:04 07/13/20 17:04 07/13/20 17:04 General appearance: no acute distress HEENT: Positive: PERRL, Normocephaly, Mucus Membranes Moist Neck: Positive: neck supple, trachea midline Cardiac: Positive: Reg Rate and Rhythm, S1/S2 Lungs: Positive: Decreased Breath Sounds Neuro: Positive: Grossly Intact Abdomen: Negative: Tender Skin: Negative: Rash Musculoskeletal: No Pain Extremities: Absent: edema Results 07/14/20 05:18 07/14/20 05:18 Cardiac Enzymes 07/13/20 07/13/20 Range/Units 17:53 20:38 AST 29 (5-40) units/L Lactate Dehydrogenase 309 H (91-180) units/L Coagulation 07/13/20 07/14/20 Range/Units 17:53 05:18 PT 12.9 13.3 (12.2-14.9) Sec. INR 0.98 1.02 (0.87-1.13) APTT 29.8 (24.2-36.6) Sec. CBC 07/13/20 07/14/20 Range/Units 17:53 05:18 WBC 8.5 6.8 (4.5-11.0) K/mm3 RBC 3.49 L 3.47 L (3.65-5.03) M/mm3 Hgb 10.5 10.5 (10.1-14.3) gm/dl Hct 31.7 31.3 (30.3-42.9) % Plt Count 295 298 (140-440) K/mm3 Lymph # (Auto) 2.5 2.1 (1.2-5.4) K/mm3 [place] # (Auto) 0.6 0.5 (0.0-0.8) K/mm3 Eos # (Auto) 0.5 H 0.4 (0.0-0.4) K/mm3 Baso # (Auto) 0.1 0.1 (0.0-0.1) K/mm3 Comprehensive Metabolic Panel 07/13/20 07/13/20 07/14/20 Range/Units 17:53 20:38 05:18 Sodium 142 137 (137-145) mmol/L Potassium 4.4 4.1 (3.6-5.0) mmol/L Chloride 106.4 103.7 (98-107) mmol/L Carbon Dioxide 29 24 (22-30) mmol/L BUN 38 H 40 H (7-17) mg/dL Creatinine 1.9 H 2.1 H (0.6-1.2) mg/dL Glucose 91 94 102 H (65-100) mg/dL Calcium 8.8 8.6 (8.4-10.2) mg/dL AST 29 (5-40) units/L ALT 33 (7-56) units/L Alkaline Phosphatase 130 H (35-129) units/L Total Protein 5.7 L (6.3-8.2) g/dL Albumin 3.3 L (3.9-5) g/dL - Imaging and Cardiology Echo: pending EKG: report reviewed, image reviewed EKG interpretations - Telemetry EKG Rhythm: Sinus Rhythm - EKG Sinus rhythms and dysrhythmias: sinus rhythm Assessment and Plan Optimize anti-hypertensive regimen - initiate lopressor and norvasc. Agree with IV lasix BID if okay per nephrology - nephrology is following. COVID-19 testing is pending. Plan to obtain tte pending test results. Will follow. The patient has been seen in conjunction with Dr. Hoffmann who agrees with the assessment and plan of care. - Patient Problems (1) Acute heart failure Current Visit: Yes Status: Acute (2) Suspected COVID-19 virus infection Current Visit: Yes Status: Acute (3) Uncontrolled hypertension Current Visit: Yes Status: Acute (4) Chronic kidney disease Current Visit: Yes Status: Chronic (5) History of hepatitis C Current Visit: Yes Status: Chronic
[2020-07-14] MEDS: METOPROLOL TARTRATE 50 MG TAB PO SCH ×3 (10:14→21:05)
--- NOTE | 2020-07-14 10:15 | Consultation ---
History of Present Illness - Reason for Consult Consult date: 07/14/20 chronic renal failure Requesting physician: DEMIAN MCMAHAN - History of Present Illness 60-year-old female with known history of hypertension, chronic kidney disease and history of depression presenting to the emergency room today complaining of shortness of breath which started about 5 days ago. Shortness of breath is said to have gotten worse over the past 24 hours. She had gone to see primary care physician few days ago and a chest x-ray was said to be abnormal and suspicious for Covid 19. A Covid test was subsequently done but result is still being awaited. Patient denies any fever or chills, denies any chest pain, she has had some headache but no dizziness, no abdominal pain, no loss of taste or smell. She has been given some inhaler,z-armando and cough syrup but indicates that her symptoms are not improving. Upon arrival in the emergency room today blood pressure was quite elevated. Chest x-ray done today was suspicious for atypical pneumonia versus pulmonary edema. Patient is being admitted for possible new onset CHF versus pneumonia with possible COVID-19. Patient states that she does have underlying chronic kidney disease. She follows up with Dr. Laurent as outpatient. Thinks that her creatinine runs around 2. Patient does complain of some nausea vomiting and diarrhea Past History Past Medical History: hypertension, renal failure, other (Depression, hepatitis C) Past Surgical History: No surgical history Social history: no significant social history Family history: no significant family history Medications and Allergies Allergies Allergy/AdvReac Type Severity Reaction Status Date / Time benazepril HCl Allergy Angioedema Verified 07/13/20 17:00 [From Lotensin] Home Medications Medication Instructions Recorded Confirmed Last Taken Type Labetalol 200mg TAB 07/13/20 Unknown History Valsartan-Hctz 320-12.5 mg Tab 07/13/20 Unknown History amLODIPine 07/13/20 Unknown History Active Meds: Active Medications Acetaminophen (Acetaminophen 325 Mg Tab) 650 mg PO Q4H PRN PRN Reason: Pain MILD(1-3)/Fever >100.5/HERR Last Admin: 07/14/20 05:40 Dose: 650 mg Documented by: Dexamethasone (Dexamethasone 2 Mg Tab) 6 mg PO Q24HR [facility] Furosemide (Furosemide 40 Mg/4 Ml Inj) 40 mg IV BID@0600,1800 [facility] Last Admin: 07/14/20 05:32 Dose: 40 mg Documented by: Heparin Sodium (Porcine) (Heparin 5,000 Unit/1 Ml Vial) 5,000 unit SUB-Q Q8HR [facility] Last Admin: 07/14/20 05:30 Dose: 5,000 unit Documented by: Hydralazine HCl (Hydralazine 20 Mg/1 Ml Inj) 10 mg IV Q4H PRN PRN Reason: Blood Pressure Last Admin: 07/14/20 09:18 Dose: 10 mg Documented by: Ceftriaxone Sodium (Rocephin/Ns 2 Gm/100 Ml) 2 gm in 100 mls @ 200 mls/hr IV Q24HR [facility]; Protocol Azithromycin 500 mg/ Sodium (Chloride) 250 mls @ 250 mls/hr IV Q24HR [facility]; Protocol Stop: 07/17/20 10:59 Magnesium Hydroxide (Magnesium Hydroxide (Mom) Oral Liqd Udc) 30 ml PO Q4H PRN PRN Reason: Constipation Metoprolol Tartrate (Metoprolol Tartrate 50 Mg Tab) 50 mg PO BID [facility] Morphine Sulfate (Morphine 2 Mg/1 Ml Inj) 2 mg IV Q4H PRN PRN Reason: Pain, Moderate (4-6) Last Admin: 07/14/20 09:01 Dose: 2 mg Documented by: Ondansetron HCl (Ondansetron 4 Mg/2 Ml Inj) 4 mg IV Q8H PRN PRN Reason: Nausea And Vomiting Sodium Chloride (Sodium Chloride 0.9% 10 Ml Flush Syringe) 10 ml IV BID [facility] Sodium Chloride (Sodium Chloride 0.9% 10 Ml Flush Syringe) 10 ml IV PRN PRN PRN Reason: LINE FLUSH Last Admin: 07/14/20 01:00 Dose: 10 ml Documented by: Review of Systems All systems: negative (Negative except as noted above) Exam - Vital Signs Vital signs: Vital Signs Temp Pulse Resp BP Pulse Ox 98.5 F 77 24 214/121 98 07/13/20 17:04 07/13/20 17:04 07/13/20 17:04 07/13/20 17:04 07/13/20 17:04 - General Appearance General appearance: well-developed, well-nourished, appears stated age EENT: PERRL, mucous membranes moist Neck: Present: neck supple, trachea midline. Absent: JVD/HJR, Masses Respiratory: Clear to Ascultation Heart: regular, normal heart rate Gastrointestinal: Present: normal, normoactive bowel sounds Integumentary: no rash, other (No edema) Results - Lab Results 07/14/20 05:18 07/14/20 05:18 Most recent lab results Calcium 8.6 mg/dL (8.4-10.2) 07/14/20 05:18 Assessment and Plan Impression * Chronic kidney disease * COVID-19 pneumonia * Hypertension * Depression * Hepatitis C Recommendations * Patient has underlying chronic kidney disease by history. Most likely at baseline. She probably has underlying hypertensive nephrosclerosis * Clinically patient does not appear to be volume overloaded. She may be more on the dry side * Shall discontinue her Lasix * Check a UA as well as fractional excretion of sodium * If patient has active urine sediment, she will need additional work-up * Check a renal ultrasound to assess kidney size and echogenicity * Avoid nephrotoxins * Monitor fluid status and electrolytes closely * Thank you very much for the consultation. Shall follow along with you
[2020-07-14] MEDS ORDERED: METOPROLOL TARTRATE 5 MG/5 ML INJ IV SCH (11:00)
[2020-07-14] MEDS ORDERED: amLODIPine 10 MG TAB PO SCH (11:00)
[2020-07-14] MEDS ORDERED: METOPROLOL TARTRATE 5 MG/5 ML INJ IV ONE (11:04)
[2020-07-14] MEDS ORDERED: METOCLOPRAMIDE 10 MG/2 ML INJ IV PRN (12:00)
--- NOTE | 2020-07-14 13:55 | Consultation ---
History of Present Illness - Reason for Consult Consult date: 07/14/20 - History of Present Illness 60-year-old female past medical history hypertension, CKD, depression brought to the hospital complaining of shortness of breath. This began approximately 5 days prior to admission and was acutely worse 1 day prior to admission. She went to see her primary care doctor, and Covid test was obtained at that time though testing is pending. She otherwise denies any symptoms. Afebrile since admission with a white count of 7. GFR is 29. Procalcitonin 0.05. Covid testing pending. Blood cultures pending. Imaging personally reviewed: Chest x-ray: Edema versus infection. Review of systems: Deferred due to PPE conservation strategy. Past History Past Medical History: hypertension, renal failure (CKD), other (Depression, hepatitis C) Past Surgical History: No surgical history Social history: no significant social history Family history: no significant family history Medications and Allergies Allergies Allergy/AdvReac Type Severity Reaction Status Date / Time benazepril HCl Allergy Angioedema Verified 07/13/20 17:00 [[facility] Home Medications Medication Instructions Recorded Confirmed Last Taken Type Labetalol 200mg TAB 07/13/20 Unknown History Valsartan-Hctz 320-12.5 mg Tab 07/13/20 Unknown History amLODIPine 07/13/20 Unknown History Active Meds: Active Medications Acetaminophen (Acetaminophen 325 Mg Tab) 650 mg PO Q4H PRN PRN Reason: Pain MILD(1-3)/Fever >100.5/HERR Last Admin: 07/14/20 05:40 Dose: 650 mg Documented by: Amlodipine Besylate (Amlodipine 10 Mg Tab) 10 mg PO QDAY [facility] Last Admin: 07/14/20 13:25 Dose: 10 mg Documented by: Dexamethasone (Dexamethasone 2 Mg Tab) 6 mg PO Q24HR [facility] Furosemide (Furosemide 40 Mg/4 Ml Inj) 40 mg IV 0600,1800 [facility] Heparin Sodium (Porcine) (Heparin 5,000 Unit/1 Ml Vial) 5,000 unit SUB-Q Q8HR [facility] Last Admin: 07/14/20 05:30 Dose: 5,000 unit Documented by: Hydralazine HCl (Hydralazine 20 Mg/1 Ml Inj) 10 mg IV Q4H PRN PRN Reason: Blood Pressure Last Admin: 07/14/20 09:18 Dose: 10 mg Documented by: Hydralazine HCl (Hydralazine 25 Mg Tab) 50 mg PO Q8HR [facility] Ceftriaxone Sodium (Rocephin/Ns 2 Gm/100 Ml) 2 gm in 100 mls @ 200 mls/hr IV Q24HR [facility]; Protocol Last Admin: 07/14/20 10:15 Dose: 200 mls/hr Documented by: Azithromycin 500 mg/ Sodium (Chloride) 250 mls @ 250 mls/hr IV Q24HR [facility]; Protocol Stop: 07/17/20 10:59 Magnesium Hydroxide (Magnesium Hydroxide (Mom) Oral Liqd Udc) 30 ml PO Q4H PRN PRN Reason: Constipation Metoclopramide HCl (Metoclopramide 10 Mg/2 Ml Inj) 5 mg IV Q6H PRN PRN Reason: Nausea And Vomiting Last Admin: 07/14/20 11:48 Dose: 5 mg Documented by: Metoprolol Tartrate (Metoprolol Tartrate 50 Mg Tab) 50 mg PO BID [facility] Morphine Sulfate (Morphine 2 Mg/1 Ml Inj) 2 mg IV Q4H PRN PRN Reason: Pain, Moderate (4-6) Last Admin: 07/14/20 09:01 Dose: 2 mg Documented by: Ondansetron HCl (Ondansetron 4 Mg/2 Ml Inj) 4 mg IV Q8H PRN PRN Reason: Nausea And Vomiting Last Admin: 07/14/20 10:22 Dose: 4 mg Documented by: Sodium Chloride (Sodium Chloride 0.9% 10 Ml Flush Syringe) 10 ml IV BID [facility] Last Admin: 07/14/20 10:15 Dose: 10 ml Documented by: Sodium Chloride (Sodium Chloride 0.9% 10 Ml Flush Syringe) 10 ml IV PRN PRN PRN Reason: LINE FLUSH Last Admin: 07/14/20 01:00 Dose: 10 ml Documented by: Physical Examination - Physical Exam Narrative exam: Physical exam deferred due to PPE conservation strategy. Please refer to primar y team's note. - Constitutional Vitals: Vital Signs Temp Pulse Resp BP Pulse Ox 98.7 F 69 16 200/119 96 07/13/20 19:42 07/14/20 09:40 07/14/20 09:40 07/14/20 11:42 07/14/20 11:42 Temperature -Last 24 Hours Temperature 98.7 F Temperature 98.5 F Results - Labs CBC & Chem 7: 07/14/20 05:18 07/14/20 05:18 Labs: Abnormal lab results 07/13/20 07/13/20 07/13/20 Range/Units 17:53 17:53 20:38 RBC 3.49 L (3.65-5.03) M/mm3 [place] % (Auto) 7.4 H (0.0-7.3) % Eos % (Auto) 5.5 H (0.0-4.3) % Eos # (Auto) 0.5 H (0.0-0.4) K/mm3 D-Dimer 275.27 H (0-234) ng/mlDDU BUN 38 H (7-17) mg/dL Creatinine 1.9 H (0.6-1.2) mg/dL Glucose (65-100) mg/dL Alkaline Phosphatase 130 H (35-129) units/L Lactate Dehydrogenase (91-180) units/L NT-Pro-B Natriuret Pep 9796 H (0-900) pg/mL Total Protein 5.7 L (6.3-8.2) g/dL Albumin 3.3 L (3.9-5) g/dL 07/13/20 07/14/20 07/14/20 Range/Units 20:38 05:18 05:18 RBC 3.47 L (3.65-5.03) M/mm3 [place] % (Auto) 7.7 H (0.0-7.3) % Eos % (Auto) 6.5 H (0.0-4.3) % Eos # (Auto) (0.0-0.4) K/mm3 D-Dimer (0-234) ng/mlDDU BUN 40 H (7-17) mg/dL Creatinine 2.1 H (0.6-1.2) mg/dL Glucose 102 H (65-100) mg/dL Alkaline Phosphatase (35-129) units/L Lactate Dehydrogenase 309 H (91-180) units/L NT-Pro-B Natriuret Pep (0-900) pg/mL Total Protein (6.3-8.2) g/dL Albumin (3.9-5) g/dL Assessment and Plan Cultures: Blood culture pending A/P: 60-year-old female past medical history hypertension, CKD, depression admitted as Covid PUI versus new onset CHF #Covid PUI: Awaiting test results. Normal procalcitonin despite CKD #Possible new onset CHF: Pending TTE which is pending Covid test. Elevated BNP #CKD: Renally dose antibiotics Recs: -Follow-up Covid testing -If COVID-19 positive and hypoxic, would start dexamethasone 6 mg every day. -Renal function is borderline, may not be candidate for remdesivir if Covid positive. Creatinine clearance needs to be >30 Thank you for the consult, we will continue to follow. Neeta Higgins MD [facility] ([facility] O: [phone] F: [phone]
[2020-07-14] MEDS: hydrALAZINE 25 MG TAB PO SCH ×2 (14:05→21:04)
--- NOTE | 2020-07-14 14:58 | Progress Note ---
Assessment and Plan -- New onset of congestive heart failure Patient admitted and placed on diuretics. Will schedule patient for echo cardiogram. Will monitor inputs and outputs and also monitor daily weights. We will place a consult to cardiology for evaluation. -- Suspected COVID-19 virus infection Patient placed on isolation precautions. We will await COVID-19 testing. Meanwhile also placed on empiric IV antibiotics for pneumonia. Consult placed to infectious disease for evaluation and recommendation. -- Uncontrolled hypertension We will resume patient's routine home medications and monitor vital signs closely. We also place patient on IV antihypertensive medication as needed for optimal blood pressure control. -- Chronic kidney disease We will monitor BUN and creatinine. Creatinine seems to be at baseline. We will place consult to nephrology for evaluation prior to discharge. -- DVT prophylaxis Patient placed on subcutaneous heparin. -- Full code status Subjective Date of service: 07/14/20 Objective - Constitutional Vitals: Vital Signs - 12hr 07/14/20 07/14/20 07/14/20 03:00 03:21 04:01 Pulse Rate Respiratory Rate Blood Pressure 188/99 188/99 183/106 O2 Sat by Pulse 99 97 99 Oximetry 07/14/20 07/14/20 07/14/20 05:00 05:06 05:10 Pulse Rate 70 Respiratory Rate Blood Pressure 183/106 O2 Sat by Pulse 97 94 97 Oximetry 07/14/20 07/14/20 07/14/20 05:16 05:30 05:36 Pulse Rate 67 66 Respiratory 18 15 Rate Blood Pressure 125/78 177/99 177/99 O2 Sat by Pulse 99 100 98 Oximetry 07/14/20 07/14/20 07/14/20 06:00 06:30 07:00 Pulse Rate 60 85 Respiratory 17 21 Rate Blood Pressure 155/78 160/82 181/108 O2 Sat by Pulse 98 99 97 Oximetry 07/14/20 07/14/20 07/14/20 07:20 07:40 08:00 Pulse Rate Respiratory Rate Blood Pressure 191/110 185/113 184/115 O2 Sat by Pulse 97 96 98 Oximetry 07/14/20 07/14/20 07/14/20 08:20 08:40 09:00 Pulse Rate 69 Respiratory 18 Rate Blood Pressure 201/104 196/108 197/104 O2 Sat by Pulse 98 96 96 Oximetry 07/14/20 07/14/20 07/14/20 09:18 09:20 09:40 Pulse Rate 68 65 69 Respiratory 19 16 Rate Blood Pressure 197/104 182/91 182/91 O2 Sat by Pulse 97 97 Oximetry 07/14/20 07/14/20 07/14/20 10:00 10:20 11:42 Pulse Rate Respiratory Rate Blood Pressure 166/99 166/99 200/119 O2 Sat by Pulse 97 98 96 Oximetry - Labs CBC & Chem 7: 07/14/20 05:18 07/14/20 05:18 Labs: Abnormal lab results 07/13/20 07/13/20 07/13/20 Range/Units 17:53 17:53 20:38 RBC 3.49 L (3.65-5.03) M/mm3 [place] % (Auto) 7.4 H (0.0-7.3) % Eos % (Auto) 5.5 H (0.0-4.3) % Eos # (Auto) 0.5 H (0.0-0.4) K/mm3 D-Dimer 275.27 H (0-234) ng/mlDDU BUN 38 H (7-17) mg/dL Creatinine 1.9 H (0.6-1.2) mg/dL Glucose (65-100) mg/dL Alkaline Phosphatase 130 H (35-129) units/L Lactate Dehydrogenase (91-180) units/L NT-Pro-B Natriuret Pep 9796 H (0-900) pg/mL Total Protein 5.7 L (6.3-8.2) g/dL Albumin 3.3 L (3.9-5) g/dL 07/13/20 07/14/20 07/14/20 Range/Units 20:38 05:18 05:18 RBC 3.47 L (3.65-5.03) M/mm3 [place] % (Auto) 7.7 H (0.0-7.3) % Eos % (Auto) 6.5 H (0.0-4.3) % Eos # (Auto) (0.0-0.4) K/mm3 D-Dimer (0-234) ng/mlDDU BUN 40 H (7-17) mg/dL Creatinine 2.1 H (0.6-1.2) mg/dL Glucose 102 H (65-100) mg/dL Alkaline Phosphatase (35-129) units/L Lactate Dehydrogenase 309 H (91-180) units/L NT-Pro-B Natriuret Pep (0-900) pg/mL Total Protein (6.3-8.2) g/dL Albumin (3.9-5) g/dL
[2020-07-14] MEDS ORDERED: ALPRAZolam 0.25 MG TAB PO PRN (14:59)
[2020-07-14] MEDS ORDERED: DEXAMETHASONE 2 MG TAB PO SCH (15:30)
[2020-07-15] MEDS: hydrALAZINE 25 MG TAB PO SCH (05:32)
[2020-07-15] MEDS: HEPARIN 5,000 UNIT/1 ML VIAL SUB-Q SCH (05:32)
[2020-07-15 07:07] LABS: Calcium 8.6 mg/dL (8.4-10.2)
--- NOTE | 2020-07-15 09:04 | Progress Note ---
Assessment and Plan Impression * Chronic kidney disease * pneumonia * Hypertension * Depression * Hepatitis C Recommendations * Patient has underlying chronic kidney disease by history. She probably has underlying hypertensive nephrosclerosis * Clinically patient does not appear to be volume overloaded. She may be more on the dry side * If patient has active urine sediment, she will need additional work-up * Follow-up results of renal ultrasound * Avoid nephrotoxins * Monitor fluid status and electrolytes closely * Urine studies are still pending. Shall reorder. * Her Covid test is negative * Serum creatinine noted to be higher at 2.4. Hold her Diovan for now. * Adjust antihypertensive medications Subjective Date of service: 07/15/20 Interval history: Patient is comfortable today. States that her shortness of breath is better. Denies any nausea vomiting or diarrhea. Objective - Vital Signs Vital signs: Vital Signs - 12hr 07/14/20 07/14/20 07/14/20 21:04 21:05 21:46 Temperature 98.6 F Pulse Rate 81 81 75 Respiratory 18 Rate Blood Pressure 169/107 169/107 173/101 O2 Sat by Pulse 96 Oximetry 07/15/20 07/15/20 07/15/20 04:24 05:32 05:33 Temperature 97.9 F Pulse Rate 74 71 Respiratory 17 Rate Blood Pressure 175/98 184/105 184/105 O2 Sat by Pulse 97 Oximetry 07/15/20 06:00 Temperature Pulse Rate Respiratory 18 Rate Blood Pressure O2 Sat by Pulse 97 Oximetry - General Appearance General appearance: well-developed, well-nourished, appears stated age EENT: PERRL, mucous membranes moist Neck: no JVD, no thyromegaly, no carotid bruit, supple Respiratory: Present: Clear to Ascultation Cardiology: regular, normal heart rate, S1S2, no murmurs Gastrointestinal: normal, normoactive bowel sounds Integumentary: no rash, other (No edema) - Lab 07/14/20 05:18 07/15/20 04:39 Most recent lab results Calcium 8.6 mg/dL (8.4-10.2) 07/15/20 04:39 Medications & Allergies - Medications Allergies/Adverse Reactions: Allergies benazepril HCl [From Lotensin] Allergy (Verified 07/13/20 17:00) Angioedema Home Medications: Home Medications Medication Instructions Recorded Confirmed Last Taken Type Amlodipine-Valsartan 10-320 mg 1 tab PO DAILY 07/14/20 07/14/20 Unknown History Lasix TAB 20 mg PO DAILY 07/14/20 07/14/20 Unknown History Paxil 10 mg PO DAILY 07/14/20 07/14/20 Unknown History atenoloL [Tenormin] 25 mg PO DAILY 07/14/20 07/14/20 Unknown History Active Medications: Generic Name Dose Route Start Last Admin Trade Name Freq PRN Reason Stop Dose Admin Acetaminophen 650 mg 07/13/20 23:17 07/14/20 23:00 Acetaminophen 325 Mg Tab PO 650 mg Q4H PRN Administration Pain MILD(1-3)/Fever >100.5/HERR Alprazolam 0.25 mg 07/14/20 14:59 Alprazolam 0.25 Mg Tab PO Q8H PRN Anxiety Clonidine HCl 0.1 mg 07/15/20 10:00 Clonidine Tts 0.1 Mg/24 Hr Patch TD Tu@1000 SUNIL Dexamethasone 6 mg 07/14/20 15:30 07/14/20 16:30 Dexamethasone 2 Mg Tab PO 07/23/20 10:01 6 mg Q24HR SUNIL Administration Furosemide 20 mg 07/15/20 10:00 Furosemide 20 Mg Tab PO QDAY SUNIL Heparin Sodium (Porcine) 5,000 unit 07/14/20 06:00 07/15/20 05:32 Heparin 5,000 Unit/1 Ml Vial SUB-Q 5,000 unit Q8HR SUNIL Administration Hydralazine HCl 10 mg 07/14/20 00:55 07/14/20 09:18 Hydralazine 20 Mg/1 Ml Inj IV 10 mg Q4H PRN Administration Blood Pressure Hydralazine HCl 50 mg 07/14/20 14:00 07/15/20 05:32 Hydralazine 25 Mg Tab PO 50 mg Q8HR SUNIL Administration Ceftriaxone Sodium 2 gm in 100 mls @ 200 mls/hr 07/14/20 10:00 07/14/20 10:15 Rocephin/Ns 2 Gm/100 Ml IV 200 mls/hr Q24HR SUINL Administration Protocol Azithromycin 500 mg/ Sodium 250 mls @ 250 mls/hr 07/14/20 10:00 07/14/20 14:21 Chloride IV 07/17/20 10:59 250 mls/hr Q24HR SUNIL Administration Protocol Labetalol HCl 20 mg 07/15/20 10:00 Labetalol 20 Mg/4 Ml Inj IV Q4HR SUNIL Magnesium Hydroxide 30 ml 07/13/20 23:22 Magnesium Hydroxide (Mom) Oral Liqd Udc PO Q4H PRN Constipation Metoclopramide HCl 5 mg 07/14/20 12:00 07/14/20 11:48 Metoclopramide 10 Mg/2 Ml Inj IV 5 mg Q6H PRN Administration Nausea And Vomiting Morphine Sulfate 2 mg 07/13/20 23:22 07/14/20 09:01 Morphine 2 Mg/1 Ml Inj IV 2 mg Q4H PRN Administration Pain, Moderate (4-6) Ondansetron HCl 4 mg 07/13/20 23:17 07/14/20 10:22 Ondansetron 4 Mg/2 Ml Inj IV 4 mg Q8H PRN Administration Nausea And Vomiting Sodium Chloride 10 ml 07/14/20 10:00 07/14/20 21:05 Sodium Chloride 0.9% 10 Ml Flush Syringe IV 10 ml BID SUNIL Administration Sodium Chloride 10 ml 07/13/20 23:17 07/14/20 01:00 Sodium Chloride 0.9% 10 Ml Flush Syringe IV 10 ml PRN PRN Administration LINE FLUSH
[2020-07-15 09:27] VITALS: BP 162/102
[2020-07-15] MEDS ORDERED: cloNIDine TTS 0.1 MG/24 HR PATCH TD SCH (10:00)
[2020-07-15] MEDS ORDERED: amLODIPine 5 MG TAB PO SCH ×2 (10:00→10:12)
[2020-07-15] MEDS ORDERED: FUROSEMIDE 20 MG TAB PO SCH (10:00)
--- NOTE | 2020-07-15 10:04 | Discharge Summary ---
Providers - Providers Date of Admission: 07/13/20 23:03 Date of discharge: 07/15/20 Attending physician: DEMIAN MCMAHAN 07/13/20 23:22 Consult to Physician [CONS] Routine Comment: Consulting Provider: ADAN SANTAMARIA Physician Instructions: Reason For Exam: Dyspnea.- R/O new onset CHF 07/13/20 23:42 Consult to Physician [CONS] Routine Comment: Consulting Provider: ADIS CASTRO Physician Instructions: Reason For Exam: Pneumonia R/O covid 19 07/14/20 00:58 Consult to Physician [CONS] Routine Comment: Consulting Provider: SHANTEL SAGASTUME Physician Instructions: Reason For Exam: Chronic kidney disease Primary care physician: [employer] Hospitalization Condition: Stable Disposition: [id number]-06 HOME [facility] Time spent for discharge: 34 minutes Exam - Constitutional Vitals: Temp Pulse Resp BP Pulse Ox 98.2 F 74 18 162/102 98 07/15/20 09:00 07/15/20 09:00 07/15/20 09:00 07/15/20 09:00 07/15/20 09:00 Plan Activity: advance as tolerated Weight Bearing Status: Weight Bear as Tolerated Diet: low fat, low salt Special Instructions: record daily BP diary Additional Instructions: 2d echo at Dr Hoffmann office in one week Follow up with: PRIMARY CARE, [Primary Care Provider] - 3-5 Days Prescriptions: amLODIPine 10 mg PO QDAY #30 tablet amLODIPine 10 mg PO QDAY #30 tablet hydrALAZINE [Apresoline TAB] 50 mg PO Q8HR #90 tablet levoFLOXacin [Levaquin] 750 mg PO QDAY #3 tablet
[2020-07-15] MEDS ORDERED: amLODIPine 10 MG TAB PO SCH (10:30)
[2020-07-15] MEDS ORDERED: METOPROLOL TARTRATE 50 MG TAB PO SCH (11:00)
--- NOTE | 2020-07-15 11:53 | Progress Note ---
Assessment and Plan COVID-19 testing is negative. Pt appears clinically improved. Currently stable cardiac status. Pt may discharge from cardiology standpoint on present cardiac regimen, including PO norvasc, lopressor and clonidine patch. Plan to obtain echo as OP. Follow up in our [place] office for tte on 07/22/2020 @ 1:45PM. Follow up in our [place] office with Dr Hoffmann on 08/04/2020 @ 1:00PM. The patient has been seen in conjunction with Dr. Hoffmann who agrees with the assessment and plan of care. - Patient Problems (1) Suspected COVID-19 virus infection Current Visit: Yes Status: Acute (2) Uncontrolled hypertension Current Visit: Yes Status: Acute (3) Chronic kidney disease Current Visit: Yes Status: Chronic (4) History of hepatitis C Current Visit: Yes Status: Chronic (5) Nausea and vomiting Current Visit: Yes Status: Acute Subjective Date of service: 07/15/20 Principal diagnosis: HTN; CKD; HF Interval history: pt ambulating around room, feeling much better today. tele reviewed - in SR. Objective Last Vital Signs Temp 98.2 F 07/15/20 09:00 Pulse 74 07/15/20 09:00 Resp 18 07/15/20 09:00 BP 162/102 07/15/20 09:00 Pulse Ox 98 07/15/20 09:00 - Physical Examination General: No Apparent Distress HEENT: Positive: PERRL, Normocephaly, Mucus Membranes Moist Neck: Positive: neck supple, trachea midline Cardiac: Positive: Reg Rate and Rhythm, S1/S2 Lungs: Positive: Decreased Breath Sounds Neuro: Positive: Grossly Intact Abdomen: Negative: Tender Skin: Negative: Rash Musculoskeletal: No Pain Extremities: Absent: edema - Labs and Meds Comprehensive Metabolic Panel 07/15/20 Range/Units 04:39 Sodium 138 (137-145) mmol/L Potassium 4.7 (3.6-5.0) mmol/L Chloride 101.6 (98-107) mmol/L Carbon Dioxide 21 L (22-30) mmol/L BUN 39 H (7-17) mg/dL Creatinine 2.4 H (0.6-1.2) mg/dL Glucose 124 H (65-100) mg/dL Calcium 8.6 (8.4-10.2) mg/dL - Imaging and Cardiology EKG: report reviewed, image reviewed Echo: pending - Telemetry EKG Rhythm: Sinus Rhythm - EKG Sinus rhythms and dysrhythmias: sinus rhythm
[2020-07-16] MEDS ORDERED: AZITHROMYCIN 250 MG TAB PO SCH (10:00)
== END 2020-07-15 12:00 | disposition home health service (06) ==
LOC: ED 16:53 → 3A 23:03
PROVIDERS: ADMIT Internal Medicine Geriatric Medicine; ATTEND Internal Medicine
DX: J18.9 Pneumonia, unspecified organism (principal); Z20.828 Contact with and (suspected) exposure to other viral communicable diseases; I13.0 Hypertensive heart and chronic kidney disease with heart failure and stage 1 through stage 4 chronic kidney disease, or unspecified chronic kidney disease; I50.9 Heart failure, unspecified; N18.9 Chronic kidney disease, unspecified; F32.9 Major depressive disorder, single episode, unspecified; R11.2 Nausea with vomiting, unspecified; Z86.19 Personal history of other infectious and parasitic diseases; Z98.890 Other specified postprocedural states
CPT/HCPCS: 36415; 71046; 80048; 80053; 82728; 82947; 83615; 83880; 84145; 85025; 85379; 85610; 85730; 86140; 87040; 93005; 96365; 96366; 96367; 96372; 96375; 96376; 99285; G0378; J0360; J0456; J0696; J1644; J1940; J2270; J2405; J2765; J7050; J8540; U0003